=== PATIENT | female | born 1965 | race Caucasian/White ===

== ENCOUNTER 2019-07-03 09:12 | Outpatient (CLI) | payer OTHER, SELFPAY ==
--- NOTE | ~2019-07-03 | US_ITS ---
EXAMINATION: US pelvic complete w TV EXAM DATE: 07/03/2019 10:16 INDICATION: Postmenopausal bleeding. TECHNIQUE: Pelvic transabdominal and transvaginal sonogram was performed. There are multiple graysca le and Doppler images available for interpretation. There is no prior study for comparison. FINDINGS: Uterus measures 6.7 x 3.6 x 5.1 cm, and is morphologically normal. Endometrial stripe malorie sures 6 mm, upper limits of normal. There is no free pelvic fluid. Right adnexa: The ovary measures 1.5 x 0.7 x 1.1 cm and is morphologically normal. Ovarian vascular f low confirmed. Left adnexa: The ovary measures 1.1 x 0.6 x 0.9 cm and is morphologically normal. Ovarian vascular fl ow confirmed. IMPRESSION: Endometrium measuring 6 mm, upper limits of normal for postmenopausal status; consider fo llow-up or histologic correlation if symptoms persist. Reviewed, dictated and finalized at location A. IMPRESSION: Endometrium measuring 6 mm, upper limits of normal for postmenopaus al status; consider follow-up or histologic correlation if symptoms persist.
== END 2019-07-03 09:13 | disposition home or self-care (01) ==
LOC: ANHIMG 09:15
PROVIDERS: PCP Internal Medicine; Visit Provider Student in an Organized Health Care Education/Training Program
DX: N95.0 Postmenopausal bleeding (principal)
CPT/HCPCS: 76830; 76856

== ENCOUNTER 2019-12-27 14:39 | Outpatient (CLI) | payer OTHER, SELFPAY ==
--- NOTE | ~2019-12-27 | MM_ITS ---
EXAMINATION: MM screening ant BI w thomas HISTORY: Screening TECHNIQUE: Craniocaudal and mediolateral oblique 3-D tomosynthesis images were obtained and synthetic 2-D images were generated. CAD analysis was submitted and interpreted. COMPARISON: No prior mammogram is available for comparison at this institution. BREAST PARENCHYMAL COMPOSITION: The breasts are heterogenously dense, which may obscure small masses. FINDINGS: There are changes of breast reduction surgery. There is no evidence of suspicious mass, yonny cification, or architectural distortion to suggest malignancy in either breast. There has been no stephanie picious interval change. IMPRESSION: 1. No mammographic evidence of malignancy. 2. Recommend routine screening mammography in one year. BI-RADS Category 1: Negative Reviewed, dictated and finalized at location A.
== END 2019-12-27 14:40 | disposition home or self-care (01) ==
LOC: ANHIMG 14:41
PROVIDERS: PCP Internal Medicine; Visit Provider Student in an Organized Health Care Education/Training Program
DX: Z12.31 Encounter for screening mammogram for malignant neoplasm of breast (principal)
CPT/HCPCS: 77063; 77067

== ENCOUNTER 2020-01-06 08:31 | Emergency (ER) | payer OTHER, SELFPAY ==
--- NOTE | ~2020-01-06 | CT_ITS ---
EXAMINATION: CTA chest PE protocol DATE: 01/06/2020 10:55 INDICATION: Right chest, back pain TECHNIQUE: Computed tomography angiography (CTA) of the chest was performed with 100 mL Omnipaque-350 intravenous contrast timed to evaluate the pulmonary arteries. Coronal maximum intensity projection 3D-reconstructions were created by the technologist. Automated exposure control and iterative reconst ruction technique were employed. Exam dose: 358.12 mGy-cm total exam DLP. COMPARISON: None. FINDINGS: There is diagnostic contrast enhancement of the pulmonary arteries and no evidence of pulmo nary embolism. No thoracic aortic aneurysm or dissection. No hilar or mediastinal mass lesion or lymphadenopathy. Normal heart size. No pericardial or pleural effusion. Calcified right upper lobe pulmonary granuloma (series 4 image 36). There is minimal degenerative dep endent atelectasis in the right lower lobe. No pulmonary consolidation. The adrenal glands are normal. Status post cholecystectomy. Included upper abdominal structures are otherwise unremarkable. IMPRESSION: No evidence of pulmonary embolism. Reviewed, dictated and finalized at [facility]. Reviewed, dictated and finalized at location A.
--- NOTE | ~2020-01-06 | CT_ITS ---
EXAMINATION: CT abdomen pelvis wo con DATE: 01/06/2020 10:45 INDICATION: Right back pain TECHNIQUE: Computed tomography (CT) of the abdomen and pelvis was performed without intravenous contr ast. Automated exposure control and iterative reconstruction technique were employed. Exam dose: 623 .89 mGy-cm total exam DLP. COMPARISON: None. FINDINGS: There is mild discoid atelectasis and/or scarring at the lung bases. Normal heart size. No pericardial or pleural effusion. Status post cholecystectomy. No hepatic, splenic, pancreatic, and adrenal or renal space-occupying ma ss lesion is detected. There is left renal scarring, primarily at the upper pole. There are several p inpoint nonobstructing left renal calculi. No ureteral calculus or hydroureteronephrosis. The urinary bladder is unremarkable. The uterus and adnexal areas are unremarkable. Normal caliber of the abdominal aorta. No intraperitoneal or retroperitoneal or pelvic mass lesion or adenopathy or ascites. Diverticulosis of the colon; no CT evidence of diverticulitis. No bowel obstruction, bowel wall thick ening, pneumatosis or intraperitoneal free air. There is moderately prominent degenerative disc disease at L5-S1. Included skeletal structures are ot herwise unremarkable. IMPRESSION: Status post cholecystectomy Left renal scarring and several nonobstructing small left renal calculi Diverticulosis of the colon; no CT evidence of diverticulitis Reviewed, dictated and finalized at [facility]. Reviewed, dictated and finalized at location A.
[2020-01-06 08:39] VITALS: BP 131/98; PULSE 75; RESP 18; TEMP 36.7; O2SAT 97
[2020-01-06 08:56] LABS: Basophils Absolute Auto 0.1 K/mm3 (0.0-0.1); Basophils Percent Auto 0.4 % (0.2-1.2); Eosinophils Absolute Auto 0.1 K/mm3 (0-0.3); Eosinophils Percent Auto 0.6 % (0-4.4); Hematocrit 43.5 % (37.0-47.0); Hemoglobin 14.6 g/dL (12.0-15.0); Immature Granulocyte Absolute 0.06 K/mm3 (0.00-0.031); Immature Granulocyte Percent A 0.5 % (0-0.5); Lymphocytes Absolute Auto 3.68 K/mm3 (0.9-3.2); Lymphocytes Percent Auto 29.6 % (18.3-44.2); Mean Corpuscular HGB Conc 33.6 g/dl (32-36); Mean Corpuscular Hemoglobin 31.6 pg (26-34); Mean Corpuscular Volume 94.2 fl (80-100); Mean Platelet Volume 10.4 fl (7.4-10.4); Monocytes Absolute Auto 0.9 K/mm3 (0.1-0.6); Monocytes Percent Auto 7.1 % (2.6-8.5); Neutrophils Absolute Auto 7.7 K/mm3 (1.3-6.7); Neutrophils Percent Auto 61.8 % (45.5-73.1); Platelet Count Result 293 k/mm3 (150-375); Red Blood Count 4.62 M/mm3 (4.2-5.4); Red Cell Distribution Width 12.1 % (11.5-14.5); White Blood Count 12.4 K/mm3 (4.5-10.0)
[2020-01-06 09:03] LABS: Add Urine Microscopic? YES; Appearance Urine Clear (Clear); Bacteria Urine Trace /hpf; Bilirubin Urine Negative (Negative); Blood Urine Negative (Negative); Color Urine Yellow (Yellow); Glucose Urine UA Negative (Negative); Ketones Urine Negative (Negative); Leukocyte Esterase Ur Negative LEU/UL (Negative); Mucus Urine Rare /lpf; Nitrate Urine Negative (Negative); Protein Urine Negative (Negative); Squamous Epithelial Cell Urine Moderate /hpf (Few); Urobilinogen Urine Negative mg/dL (<2.0); WBC Urine 0-3 /hpf
[2020-01-06 09:04] LABS: Anion Gap 6 mmol/L (8-16); Blood Urea Nitrogen 16 mg/dL (7-17); Calcium 9.1 mg/dL (8.4-10.2); Carbon Dioxide 29 mmol/L (22-30); Chloride 100 mmol/L (98-107); Estimated CRCL calculation 71 ml/min; Estimated Glomerular Filt Rate > 60; Glucose 99 mg/dL (65-105); Potassium 3.7 mmol/L (3.4-5.0); Sodium 135 mmol/L (137-145)
--- NOTE | 2020-01-06 09:54 | ED.GENADULT ---
HPI - General Adult General Chief complaint: Back Pain/Injury Stated complaint: back pain hurt to breath and move Time Seen by Provider: 01/06/20 09:35 Source: patient History of Present Illness HPI narrative: Patient is a 54 y/o female complaining of right back pain starting 2 days ago. She describes her pain as sharp. The intensity varies no pain to severe pain. Pain sometimes radiates to right rib area. Deep breath and movement aggravates her pain. She took some pain pill and muscle relaxers which did not help. She tried heating pad, which also did not help. She has no fever, chill, dysuria or hematuria. She has some nausea, but no vomiting or diarrhea. Related Data Home Medications Medication Instructions Recorded Confirmed cholecalciferol (vitamin D3) 125 5,000 unit PO DAILY 03/23/19 mcg (5,000 unit) tablet omega-3 fatty acids 300 mg capsule 1,500 mg PO DAILY 03/23/19 thyroid (pork) 90 mg tablet 90 mg PO DAILY 03/24/19 spironolactone 25 mg tablet 25 mg PO DAILY 06/22/19 testosterone 75 mg implant pellet 150 mg SUB-Q ONCE 06/22/19 Allergies Allergy/AdvReac Type Severity Reaction Status Date / Time Penicillins Allergy Severe SWELLING Verified 01/06/20 08:43 ciprofloxacin Allergy Unknown RED STREAK Verified 01/06/20 08:43 TO ARM, SWELLING Review of Systems Constitutional: Constitutional: Denies chills, Denies fever(s), Denies headache(s) and Denies weakness Eyes: Eyes: Denies blurry vision ENT: Denies headache(s) and Denies neck pain Cardiovascular: Cardiovascular: Denies chest pain and Denies dyspnea Respiratory: Respiratory: Denies cough and Denies dyspnea Gastrointestinal: Gastrointestinal: Denies abdominal pain, Denies diarrhea, Denies nausea and Denies vomiting Genitourinary: Genitourinary: Denies hematuria and Denies dysuria Musculoskeletal: Musculoskeletal: Reports back pain and Denies neck pain Neurologic: Denies headache(s) and Denies weakness PMFSH Past Medical History Medical History Diverticulosis Irritable bowel Migraines Non Hodgkin's lymphoma Vaginal delivery x4 Surgical History Surgical History History of bilateral breast reduction surgery History of cholecystectomy [place] teeth removed Family History Family History Sibling Family history of malignant neoplasm of breast in first degree relative Family history of obesity Family history of osteoporosis Family history of migraine headaches Hypertension Mother Family history of mental disorder Patient's mother is Social History Social History Smoking status: Never smoker Alcohol intake: never Gender identity (if verbalized by the patient): Female Exam Const: General: no acute distress and well developed Orientation/consciousness: oriented to person, oriented to place, oriented to time and patient oriented x3 HENMT: Head: normocephalic Ears: external ears normal General nose exam: Normal external nose present Eyes: General: appearance normal, both eyes and all related structures Conjunctivae: conjunctivae normal Neck: Neck: normal visual inspection and full ROM Chest: Chest palpation & inspection: normal inspection of the chest and no tenderness Resp: Effort & Inspection: normal respiratory effort Auscultation: clear to auscultation bilaterally Cardio: Rate: regular rate Rhythm: regular rhythm GI: GI Palp: No abdominal tenderness and Yes Soft to palpation Skin: General skin exam: normal color and turgor normal Neuro: General: oriented to person, oriented to place, oriented to time and patient oriented x3 Cognition (Neuro): normal cognition Extrem: General: normal to inspection, full ROM and no pedal edema Psych: Appearance: grossly normal Mental Status: mental
[2020-01-06 10:13] LABS: D Dimer 0.57 ug/mL (<0.48)
[2020-01-06] MEDS: KETOROLAC 30 MG/ML VIAL (*BKC) IV PUSH (12:00)
[2020-01-06] MEDS: TIZANIDINE HCL 2 MG TABLET PO (12:17)
[2020-01-06 12:38] VITALS: BP 128/80; PULSE 80; RESP 18; TEMP 36.6; O2SAT 99
== END 2020-01-06 12:39 | disposition home or self-care (01) ==
PROVIDERS: Emergency Provider Emergency Medicine; PCP Internal Medicine
DX: M54.5 Low back pain (principal); K58.9 Irritable bowel syndrome, unspecified; Z85.72 Personal history of non-Hodgkin lymphomas
CPT/HCPCS: 36415; 71275; 74176; 80048; 81001; 81025; 85025; 85380; 96374; 99284; A9270; J1885; Q9967

== ENCOUNTER 2020-05-29 15:41 | Outpatient (CLI) | payer OTHER, SELFPAY ==
--- NOTE | ~2020-05-29 | XR_ITS ---
EXAMINATION: XR hip LT 2V w AP pelvis, XR sacroiliac joints min 3V DATE: 05/29/2020 16:14 INDICATION: Left hip and bilateral sacral iliac joint pain. TECHNIQUE: 1. Anteroposterior view of the pelvis and anteroposterior and frog-leg lateral views of the left hip were obtained. 2. AP and left and right oblique views of the sacroiliac joints were obtained. COMPARISON: CT abdomen and pelvis dated 01/06/2020 FINDINGS: Bone alignment is normal. No fracture or suspected avascular necrosis. Partially visualized plate and screw fixation along the right femoral diaphysis. Mild osteoarthritis at the bilateral sacral iliac joints and minimal osteoarthritis at the bilateral hips. Severe disc height loss at L5-S1. Lower lumb ar facet osteoarthritis, severe on the left at L4-L5 and otherwise moderate severity. Multiple phlebo liths in the pelvis. Surgical clip projects of the central pelvis. IMPRESSION: 1. Polyarticular osteoarthritis, moderate to severe at the lower lumbar facet joints, mild at the primo ateral sacroiliac joints and minimal at the bilateral hip joints. Reviewed, dictated and finalized at location A. [place] [employer]IST IMPRESSION: 1. Polyarticular osteoarthritis, moderate to severe at the lower lumbar facet j oints, mild at the bilateral sacroiliac joints and minimal at the bilateral hip joints.
== END 2020-05-29 15:42 | disposition home or self-care (01) ==
LOC: ANHIMG 15:46
PROVIDERS: PCP Internal Medicine; Visit Provider Physician Assistant
DX: M16.12 Unilateral primary osteoarthritis, left hip (principal); M47.898 Other spondylosis, sacral and sacrococcygeal region
CPT/HCPCS: 72202; 73502

== ENCOUNTER 2020-06-24 16:28 | Emergency (ER) | payer OTHER, SELFPAY ==
[2020-06-24 16:36] VITALS: BP 144/107; PULSE 110; RESP 18; TEMP 36.8; O2SAT 100
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
== END 2020-06-24 19:15 | disposition home or self-care (01) ==
PROVIDERS: Emergency Provider Nurse Practitioner; PCP Internal Medicine
DX: S39.92XA Unspecified injury of lower back, initial encounter (principal); S16.1XXA Strain of muscle, fascia and tendon at neck level, initial encounter; V49.40XA Driver injured in collision with unspecified motor vehicles in traffic accident, initial encounter; K57.90 Diverticulosis of intestine, part unspecified, without perforation or abscess without bleeding; K58.9 Irritable bowel syndrome, unspecified; Z85.72 Personal history of non-Hodgkin lymphomas
CPT/HCPCS: 99283

== ENCOUNTER → 2020-08-09 00:40 | Outpatient (CLI) | payer OTHER, SELFPAY ==
[2020-08-09 21:02] LABS: SARS-CoV-2 RNA PCR Negative
== END ==
PROVIDERS: PCP Internal Medicine; Visit Provider Internal Medicine Gastroenterology
DX: Z01.812 Encounter for preprocedural laboratory examination (principal); Z20.822 Contact with and (suspected) exposure to COVID-19
CPT/HCPCS: C9803; U0003; U0005

== ENCOUNTER 2020-08-12 01:25 | Day surgery (SDC) | payer OTHER, SELFPAY ==
[2020-08-01 09:36] VITALS: BMI 26.8
[2020-08-12 10:37] VITALS: BP 120/85; PULSE 77; RESP 16; TEMP 36.8; O2SAT 97; BMI 29.4
[2020-08-12] MEDS: LACTATED RINGERS 1,000 ML 150 ML IV CONT (10:51)
--- NOTE | 2020-08-12 10:55 | SUR.PREOP ---
Pt states post-menopausal due to taking hormones. No urine need per Dr. Fountain (anesthesiologist).
--- NOTE | 2020-08-12 11:15 | PM.HPGS ---
History of Present Illness History of Present Illness Consent: Risks, benefits, and alternatives have been discussed and questions answered. Patient agrees to proceed with procedure. Chief complaint: neoplasm screening Narrative: Jennifer Coyne is a 54 year old female with colon polyp ~ 5 years ago. Review of Systems Constitutional: Constitutional: Denies headache(s) and Denies weakness Eyes: Eyes: Denies blurry vision ENT: Reports Normal hearing present, Denies headache(s) and Denies neck pain Cardiovascular: Cardiovascular: Denies chest pain and Denies dyspnea Respiratory: Respiratory: Denies dyspnea Gastrointestinal: Gastrointestinal: Reports no additional gastrointestinal complaints Genitourinary: Genitourinary: Denies dysuria Musculoskeletal: Musculoskeletal: Denies neck pain Integumentary/Breasts: Skin/Breast: Denies dry skin Neurologic: Reports Normal hearing present, Denies headache(s) and Denies weakness Psychiatric: Psychiatric: Denies anxiety Endocrine: Endocrine: Denies change in body appearance Hematologic/Lymphatic: Hematologic/Lymphatic: Denies easy bleeding Allergic/Immunologic: Allergic/Immunologic: Denies urticaria PMFSH Past Medical History Medical History Diverticulosis Irritable bowel Migraines Non Hodgkin's lymphoma Vaginal delivery x4 Surgical History Surgical History History of bilateral breast reduction surgery History of cholecystectomy [place] teeth removed Family History Family History Sibling Family history of malignant neoplasm of breast in first degree relative Family history of obesity Family history of osteoporosis Family history of migraine headaches Hypertension Mother Family history of mental disorder Patient's mother is Social History Social History (Updated 06/24/20 @ 19:06 by LAZARO Borrero) Smoking status: Never smoker Alcohol intake: unknown Substance use: never Substance use type: does not use Gender identity (if verbalized by the patient): Female Spiritual care concerns: No Meds Home Medications and Allergies Home Medications Medication Instructions Recorded Confirmed Type cholecalciferol (vitamin D3) 125 5,000 unit PO DAILY 03/23/19 08/12/20 History mcg (5,000 unit) tablet omega-3 fatty acids 300 mg capsule 1,500 mg PO DAILY 03/23/19 08/12/20 History thyroid (pork) 90 mg tablet 90 mg PO DAILY 03/24/19 08/12/20 History spironolactone 25 mg tablet 25 mg PO BID 06/22/19 08/12/20 History testosterone 75 mg implant pellet 150 mg SUB-Q ONCE 06/22/19 08/12/20 History alprazolam 1 mg tablet 1 mg PO BID #1 tablet 05/21/20 08/12/20 Rx oxycodone-acetaminophen 5 mg-325 1 tablet PO Q6H PRN #1 tablet 05/21/20 08/12/20 Rx mg tablet progesterone micronized 200 mg 200 mg PO ONCE 05/21/20 08/12/20 History capsule rabeprazole 20 mg tablet,delayed 20 mg PO DAILY #90 tablet 05/21/20 08/12/20 Rx release cetirizine 10 mg tablet See Rx Instructions .ROUTE 06/03/20 08/12/20 Rx .COMPLEX #90 tablet montelukast 10 mg tablet 10 mg PO DAILY #90 tablet 06/05/20 08/12/20 Rx ibuprofen 800 mg PO TID PRN #20 tablet 06/24/20 08/12/20 Rx fluticasone propionate 50 See Rx Instructions .ROUTE 07/29/20 08/12/20 Rx mcg/actuation nasal .COMPLEX #16 g spray,suspension Allergies Allergy/AdvReac Type Severity Reaction Status Date / Time Penicillins Allergy Severe SWELLING Verified 08/12/20 10:32 ciprofloxacin Allergy Unknown RED STREAK Verified 08/12/20 10:32 TO ARM, SWELLING Vital Signs Vital Signs - 24 hr 08/12/20 10:37 Temperature 98.3 F Pulse Rate 77 Respiratory Rate 16 Blood Pressure 120/85 Pulse Oximetry 97 Exam Const: General: comfortable and no acute distress HENMT: General nose exam: Normal nares present Eye
--- NOTE | 2020-08-12 11:27 | WPDANESEPPF ---
Anes - Initial Pre Proc Eval Procedure: Operation Date: 08/12/20 11:30 Proposed Procedures p Screening Colonoscopy - Cam Watson MD Date/Time: 08/12/20 11:27 Surgeon: Cam Watson MD Pre Op Diagnosis: neoplasm screening Patient Data Age: 54 Gender: F Height: 5 ft 8 in Weight: 87.7 kg Last Vital Signs Temp 98.3 F 08/12/20 10:37 Pulse 77 08/12/20 10:37 Resp 16 08/12/20 10:37 BP 120/85 08/12/20 10:37 Pulse Ox 97 08/12/20 10:37 Allergies Allergy/AdvReac Type Severity Reaction Status Date / Time Penicillins Allergy Severe SWELLING Verified 08/12/20 10:32 ciprofloxacin Allergy Unknown RED STREAK Verified 08/12/20 10:32 TO ARM, SWELLING Home Medications Medication Instructions Recorded Confirmed Type cholecalciferol (vitamin D3) 125 5,000 unit PO DAILY 03/23/19 08/12/20 History mcg (5,000 unit) tablet omega-3 fatty acids 300 mg capsule 1,500 mg PO DAILY 03/23/19 08/12/20 History thyroid (pork) 90 mg tablet 90 mg PO DAILY 03/24/19 08/12/20 History spironolactone 25 mg tablet 25 mg PO BID 06/22/19 08/12/20 History testosterone 75 mg implant pellet 150 mg SUB-Q ONCE 06/22/19 08/12/20 History alprazolam 1 mg tablet 1 mg PO BID #1 tablet 05/21/20 08/12/20 Rx oxycodone-acetaminophen 5 mg-325 1 tablet PO Q6H PRN #1 tablet 05/21/20 08/12/20 Rx mg tablet progesterone micronized 200 mg 200 mg PO ONCE 05/21/20 08/12/20 History capsule rabeprazole 20 mg tablet,delayed 20 mg PO DAILY #90 tablet 05/21/20 08/12/20 Rx release cetirizine 10 mg tablet See Rx Instructions .ROUTE 06/03/20 08/12/20 Rx .COMPLEX #90 tablet montelukast 10 mg tablet 10 mg PO DAILY #90 tablet 06/05/20 08/12/20 Rx ibuprofen 800 mg PO TID PRN #20 tablet 06/24/20 08/12/20 Rx fluticasone propionate 50 See Rx Instructions .ROUTE 07/29/20 08/12/20 Rx mcg/actuation nasal .COMPLEX #16 g spray,suspension Patient hx anesthesia problems: none Family hx anesthesia problems: none PMFSH Past Medical History Medical History Diverticulosis Irritable bowel Migraines Non Hodgkin's lymphoma Vaginal delivery x4 Surgical History Surgical History History of bilateral breast reduction surgery History of cholecystectomy [place] teeth removed Family History Family History Sibling Family history of malignant neoplasm of breast in first degree relative Family history of obesity Family history of osteoporosis Family history of migraine headaches Hypertension Mother Family history of mental disorder Patient's mother is Social History Social History (Updated 06/24/20 @ 19:06 by LAZARO Borrero) Smoking status: Never smoker Alcohol intake: unknown Substance use: never Substance use type: does not use Gender identity (if verbalized by the patient): Female Spiritual care concerns: No Anes - Eval Final PreProcedure Day of Procedure 08/12/20 11:27 Patient weight: overweight Heart: regular rate and rhythm Lungs: clear to auscultation Airway: Mallampati scale class III Neurological: alert and oriented Last oral intake: >/= 8 hours ASA classification: III Emergent: no Anesthetic plan: proceed Anesthesia type and monitoring: general GIVS and standard monitoring Informed Consent: The patient's anesthetic plan and its attendant risks and benefits were discussed with the patient/family/POA. Questions were solicited and answers provided to the satisfaction of the patient/family/POA.
[2020-08-12 11:43] VITALS: BP 107/72; PULSE 64; RESP 16; O2SAT 97
[2020-08-12 11:53] VITALS: BP 110/74; PULSE 62; RESP 16; O2SAT 98
[2020-08-12 12:03] VITALS: BP 112/72; PULSE 64; RESP 16; O2SAT 98
== END 2020-08-12 12:21 | disposition home or self-care (01) ==
PROVIDERS: PCP Internal Medicine; Visit Provider Internal Medicine Gastroenterology
PROC: 0DJD8ZZ Inspection of Lower Intestinal Tract, Via Natural or Artificial Opening Endoscopic (ICD-10-PCS; CPT 45378; principal; 2020-08-12 11:30)
DX: Z12.11 Encounter for screening for malignant neoplasm of colon (principal); D12.0 Benign neoplasm of cecum; D12.3 Benign neoplasm of transverse colon; K57.30 Diverticulosis of large intestine without perforation or abscess without bleeding; K64.8 Other hemorrhoids; Z79.891 Long term (current) use of opiate analgesic; Z85.72 Personal history of non-Hodgkin lymphomas
CPT/HCPCS: 45385; 88305; J2704; J7120

== ENCOUNTER → 2020-11-29 03:43 | Outpatient (CLI) | payer OTHER, SELFPAY ==
[2020-11-30 03:36] LABS: SARS-CoV-2 RNA PCR Negative
== END ==
PROVIDERS: PCP Internal Medicine; Visit Provider Internal Medicine
DX: Z20.822 Contact with and (suspected) exposure to COVID-19 (principal)
CPT/HCPCS: C9803; U0003; U0005

== ENCOUNTER 2021-01-10 14:16 | Outpatient (CLI) | payer OTHER, SELFPAY ==
--- NOTE | ~2021-01-10 | MM_ITS ---
EXAMINATION: MM screening ant BI w thomas HISTORY: Screening mammogram TECHNIQUE: Craniocaudal and mediolateral oblique 3-D tomosynthesis images were obtained and synthetic 2-D images were generated. CAD analysis was submitted and interpreted. COMPARISON: 12/27/2019 bilateral digital screening mammogram examination BREAST PARENCHYMAL COMPOSITION: There are scattered areas of fibroglandular density. FINDINGS: Status post bilateral reduction mammoplasty (2011). There is no evidence of suspicious mass , calcification, or architectural distortion to suggest malignancy in either breast. There has been n o suspicious interval change. IMPRESSION: 1. No mammographic evidence of malignancy. 2. Recommend routine screening mammography in one year. BI-RADS Category 2: Benign finding(s). Reviewed, dictated and finalized at location A.
--- NOTE | ~2021-01-10 | US_ITS ---
EXAMINATION: US pelvic complete w TV DATE: 01/10/2021 15:30 INDICATION: Postmenopausal bleeding Comparison:Ultrasound dated 07/03/2019 TECHNIQUE: Multiple transabdominal and endovaginal sonographic images of the pelvis performed. FINDINGS: The uterus measures 9 x 4.7 x 5.2 cm. The endometrial complex measures 6 mm. The right ovary measures 1.9 x 1.2 x 1.3 cm and the left ovary measures 2 x 1.8 x 1.6 cm. There are small follicles in each ovary. Normal doppler signal in both ovaries. There is no free fluid in the pelvis. There are no abnormal masses seen on either side. IMPRESSION: 1. Thickened endomtrial complex. The differential diagnosis includes endometrial hyperplasia, polyp a nd carcinoma. Biopsy is recommended. Reviewed, dictated and finalized at location A. IMPRESSION: 1. Thickened endomtrial complex. The differential diagnosis includes endometria l hyperplasia, polyp and carcinoma. Biopsy is recommended.
== END 2021-01-10 14:17 | disposition home or self-care (01) ==
LOC: ANHIMG 14:17
PROVIDERS: PCP Internal Medicine; Visit Provider Student in an Organized Health Care Education/Training Program
DX: Z12.31 Encounter for screening mammogram for malignant neoplasm of breast (principal); R10.2 Pelvic and perineal pain; R93.89 Abnormal findings on diagnostic imaging of other specified body structures
CPT/HCPCS: 76830; 76856; 77063; 77067

== ENCOUNTER → 2021-03-07 10:54 | Outpatient (CLI) | payer OTHER, SELFPAY ==
--- NOTE | ~2021-03-07 | US_ITS ---
EXAMINATION: US axilla RT INDICATION: Localized swelling and pain of the right axilla TECHNIQUE: Targeted high-resolution ultrasound of the right axilla was performed. COMPARISON: None available FINDINGS: There are two benign-appearing lymph nodes in the area of clinical concern of the right axi lla. No suspicious mass or lymphadenopathy is identified. IMPRESSION: 1. No suspicious sonographic correlate is identified for the patient's right axilla pain. Further matthew luation at this time should be based on clinical assessment. Continued follow-up physical examination is recommended. Reviewed, dictated and finalized at location A. [employer] COORDINATOR IMPRESSION: 1. No suspicious sonographic correlate is identified for the patient's right ax illa pain. Further evaluation at this time should be based on clinical assessme nt. Continued follow-up physical examination is recommended.
== END ==
PROVIDERS: Visit Provider Student in an Organized Health Care Education/Training Program
DX: R22.2 Localized swelling, mass and lump, trunk (principal)
CPT/HCPCS: 76882

== ENCOUNTER 2021-03-21 00:13 | Day surgery (SDC) | payer OTHER, SELFPAY ==
[2021-03-10 08:46] VITALS: BMI 30.2
--- NOTE | 2021-03-10 08:56 | PC.NURSE ---
Report to the Outpatient Waiting Room, entrance under the green pavilion located off [facility], at time __0830 on date __03/21/21____. OR Time: 1030 . - You and your visitor will be asked a series of questions to screen for COVID 19 for your protection. - A mask is required within the hospital. - Only one visitor is allowed at this time. Patient visitors will be guided where to wait when not with patient. Preoperative COVID Testing Requirements: No COVID Test needed if: (proof is required; if not received patient will have Rapid Test prior to entry) - Patient has received COVID Vaccine at least 14 days prior to procedure date or - Patient has positive COVID test result within last 90 days of surgery date. COVID Test needed if above criteria is not met If not COVID vaccinated a COVID test must be conducted within 72 hours of surgery and patient is asked to isolate self from time of testing until procedure. You will go to the [facility] for your COVID testing. The [facility] site is located at the corner of [address] [facility]. You will only be called if COVID results are positive and your surgeon may reschedule your elective surgery date. Patients may have clear liquids (water, carbonated beverages, clear teas, apple juice) until 3 hours prior to surgery with a maximum of 20 ounces. - No food from midnight until time of surgery - Infants may have breast milk until 4 hours before surgery, formula 6 hours prior to surgery. - Children will be allowed to drink immediately following surgery. If applicable, please bring a bottle or sippy cup to assist with drinking. Juice, water, soda, and popsicles are readily available. For infants on formula, please bring formula the day of surgery. Pacifiers are allowed. Take the following medications with a SIP of water the morning of surgery: THYROID,ALPRAZOLAM,PAIN PILL IF NEEDED Medications to discontinue per physician VITAMINS AND SUPPLIMENTS Date to take last dose 03/18/21 Please no make-up, nail welsh, hairspray, perfume, deodorant, or body powder the day of surgery. No jewelry (including any body piercings) or valuables the day of surgery, leave them at home. Please take a shower or bath the night before, or the morning of, surgery with an antibacterial soap. Wear comfortable, loose fitting clothing. Children are encouraged to wear pajamas. - Jewelry must be removed prior to entering the operating room. Rings and piercings that are not removed may be cut off. - The hospital will not accept responsibility for valuables. - Please leave all valuables, including medications, at home the day of surgery. If you are going home after surgery, a licensed corporate driver must drive you home. - NO public transportation without another adult. - We recommend that an adult stay with you for 24 hours following discharge. - We also recommend that you do not drive, make important decision, drink alcoholic beverages, or take any drugs that were not prescribed by your health care provider for at least 24 hours after your discharge time. For Pediatric surgeries, we recommend two adults accompany the child home (only one inside the building at this time). Follow any additional instructions given to you from your surgeon. Telephone instructions given to ___PATIENT and asked if any additional questions and then verbalized understanding. Patient advised to call surgeon office or pre surgery nurse liaison [phone] if any additional questions.
--- NOTE | 2021-03-20 22:45 | PM.IMHP ---
H&P: HPI History of Present Illness Date/Time: 03/20/21 22:45 Patient is a 55 yo menopausal woman who presented to gynecology office with complaints of postmenopausal bleeding. Patient receives hormone pellet injections approximately every 3-4 months by outside provider. She has previously been evaluated similar complaints, which was thought to be due to hormone pellets. She reports almost cyclic bleeding, similar to a menses. States that bleeding is sometimes spotting and other times is extremely heavy. Patient also reports cramping for a long time. States that cramping and pelvic pain is mostly on left side. An EMB was performed showing fragments of an endometrial polyp. Recommendation made to proceed with a hysteroscopy/D&C for further evaluation. In general, patient reports feeling well today. Chief Complaint: postmenopausal bleeding Review of Systems Review of Systems: All systems reviewed & are unremarkable except as noted in HPI and below Constitutional: Constitutional: Reports as per HPI, Reports no additional constitutional complaints, Denies chills, Denies fever(s), Denies headache(s) and Denies night sweats Eyes: Eyes: Reports as per HPI and Reports no additional eye complaints ENT: Reports system reviewed and no additional complaints, except as documented, Reports as per HPI, Reports Normal hearing present and Denies headache(s) Cardiovascular: Cardiovascular: Reports as per HPI, Reports no additional cardiovascular complaints, Denies chest pain and Denies dyspnea Respiratory: Respiratory: Reports as per HPI, Reports no additional respiratory complaints, Denies cough and Denies dyspnea Gastrointestinal: Gastrointestinal: Reports as per HPI, Reports no additional gastrointestinal complaints, Denies abdominal pain, Denies change in bowel habits, Denies change in stool character, Denies nausea and Denies vomiting Genitourinary: Genitourinary: Reports no additional female genitourinary complaints, Reports as per HPI, Denies abnormal vaginal bleeding, Denies genital lesions, Denies hot flashes, Denies dyspareunia, Denies pelvic pain, Denies sexual dysfunction, Denies urinary incontinence, Denies vaginal discharge, Denies vaginal dryness and Denies vaginal odor Musculoskeletal: Musculoskeletal: Reports no additional musculoskeletal complaints and Reports as per HPI Integumentary/Breasts: Skin/Breast: Reports system reviewed and no additional complaints, except as docu, Reports as per HPI, Denies breast pain and Denies nipple discharge Neurologic: Reports system reviewed and no additional complaints, except as documented, Reports as per HPI, Reports Normal hearing present and Denies headache(s) Psychiatric: Psychiatric: Reports no additional psychiatric complaints, Reports as per HPI, Denies anxiety and Denies depression Endocrine: Endocrine: Reports no additional endocrine complaints and Reports as per HPI Hematologic/Lymphatic: Hematologic/Lymphatic: Reports no additional hematologic/lymphatic complaints and Reports as per HPI Allergic/Immunologic: Allergic/Immunologic: Reports no additional allergic/immunologic complaints and Reports as per HPI PMFSH Past Medical History Medical History Colon polyp Diverticulosis Irritable bowel Migraines Non Hodgkin's lymphoma Vaginal delivery x4 Surgical History Surgical History History of bilateral breast reduction surgery History of cholecystectomy [place] teeth removed Family History Family History Sibling Family history of malignant neoplasm of breast in first degree relative Family history of obesity Family history of osteoporosis Family history of migraine headaches Hypertension Mother Family history of mental disorder Patient's mother is Social History Social History (Reviewed 03/20/21 @ 22:53 by Tete
[2021-03-21 09:15] VITALS: BP 114/79; PULSE 80; RESP 18; TEMP 36.6; O2SAT 97
--- NOTE | 2021-03-21 09:32 | WPDANESEPPF ---
Anes - Initial Pre Proc Eval Procedure: Operation Date: 03/21/21 10:30 Proposed Procedures p Hysteroscopy Dilation and Curettage Possible Myosure - Gala Bernal MD Date/Time: 03/21/21 09:32 Surgeon: Gala Bernal MD Pre Op Diagnosis: endometrial polyp, polyploidy proliferative endome Patient Data Age: 55 Gender: F Height: 1.73 m Weight: 90 kg Allergies Allergy/AdvReac Type Severity Reaction Status Date / Time Penicillins Allergy Severe SWELLING Verified 02/28/21 13:10 ciprofloxacin Allergy Unknown RED STREAK Verified 02/28/21 13:10 TO ARM, SWELLING Home Medications Medication Instructions Recorded Confirmed Type cholecalciferol (vitamin D3) 125 5,000 unit PO DAILY 03/23/19 03/10/21 History mcg (5,000 unit) tablet omega-3 fatty acids 300 mg capsule 1,500 mg PO DAILY 03/23/19 03/10/21 History spironolactone 25 mg tablet 25 mg PO BID 06/22/19 03/10/21 History testosterone 75 mg implant pellet 150 mg SUB-Q [id number] 06/22/19 03/10/21 History oxycodone-acetaminophen 5 mg-325 1 tablet PO Q6H PRN #1 tablet 05/21/20 03/10/21 Rx mg tablet progesterone micronized 200 mg 200 mg PO DAILY 05/21/20 03/10/21 History capsule rabeprazole 20 mg tablet,delayed 20 mg PO DAILY #90 tablet 12/26/20 03/10/21 Rx release ferrous sulfate 325 mg (65 mg 325 mg PO DAILY 12/27/20 03/10/21 History iron) tablet multivitamin 1 tablet PO DAILY 12/27/20 03/10/21 History thyroid (pork) 120 mg tablet 120 mg PO DAILY 12/27/20 03/10/21 History montelukast 10 mg tablet 10 mg PO DAILY #90 tablet 01/02/21 03/10/21 Rx famotidine 20 mg tablet 20 mg PO QHS #30 tablet 02/28/21 03/10/21 Rx alprazolam [Xanax] 1 mg PO BID PRN 03/10/21 03/10/21 History cetirizine 10 mg PO DAILY 03/10/21 03/10/21 History fluticasone propionate 1 spray INTRANASAL DAILY 03/10/21 03/10/21 History Patient hx anesthesia problems: post op nausea/vomiting Family hx anesthesia problems: none Results Review: All pre-operative results and documents have been reviewed as part of the pre-operative evaluation. [facility] Past Medical History Medical History Anxiety Colon polyp Diverticulosis GERD (gastroesophageal reflux disease) Hypothyroidism Irritable bowel Migraines Non Hodgkin's lymphoma Vaginal delivery x4 Surgical History Surgical History History of bilateral breast reduction surgery History of cholecystectomy [place] teeth removed Family History Family History Sibling Family history of malignant neoplasm of breast in first degree relative Family history of obesity Family history of osteoporosis Family history of migraine headaches Hypertension Mother Family history of mental disorder Patient's mother is Social History Social History Smoking status: Never smoker Second hand tobacco smoke exposure: No Alcohol intake: never Substance use: never Substance use type: does not use Living arrangements: alone Gender identity (if verbalized by the patient): Female Spiritual care concerns: No Anes - Eval Final PreProcedure Day of Procedure 03/21/21 09:32 Patient weight: overweight Heart: regular rate and rhythm Lungs: clear to auscultation Airway: Mallampati scale class II Neurological: alert and oriented Last oral intake: >/= 8 hours ASA classification: III Emergent: no Anesthetic plan: proceed Anesthesia type and monitoring: general GIVS and standard monitoring Results Review: All pre-operative results and documents have been reviewed as part of the pre-operative evaluation. Informed Consent: The patient's anesthetic plan and its attendant risks and benefits were discussed with the patient/family/POA. Questions were solicited and answers provided to the satisfaction of the pa
[2021-03-21] MEDS: ACETAMINOPHEN 500 MG TABLET 1000 MG PO (09:34)
[2021-03-21] MEDS: LACTATED RINGERS 1,000 ML 30 ML IV CONT (09:42)
--- NOTE | 2021-03-21 10:13 | WPDHPUPDATE1 ---
History and Physical Update Update Date/Time: 03/21/21 10:13 History and Physical has been reviewed, including an updated exam of the patient. There are NO changes in the patient's condition. Risks, benefits, and alternatives have been discussed and questions answered. Patient agrees to proceed with procedure.
[2021-03-21 10:16] LABS: Hematocrit 41.9 % (37.0-47.0); Hemoglobin 14.3 g/dL (12.0-15.0)
[2021-03-21 10:57] VITALS: BP 111/88; PULSE 84; RESP 12; O2SAT 93
[2021-03-21] MEDS: ONDANSETRON INJ 4 MG/2 ML VIAL IV PUSH (11:07)
--- NOTE | 2021-03-21 11:09 | W.PM.PROC2 ---
Procedure Note - Detailed Date of Procedure 03/22/21 Pre-op Diagnosis Postmenopausal bleeding, endometrial polyp Post-op Diagnosis same Procedure Performed Hysteroscopy, dilation and curettage Surgeon Gala Bernal MD Anesthesia MAC Findings moderate amount of polypoid tissue visualized with few finger-like projections suggestive of polyps, bilateral tubal ostia visualized Description of Procedure The patient was taken to the operating room where she self-transferred to the operating room table. She was placed in dorsal supine position. Anesthesia was administered and found to be adequate. The patient was repositioned in dorsal lithotomy position with the use of Fabian stirrups. She was prepped and draped in usual sterile fashion. A red rubber catheter was used to drain the bladder of 50 cc of urine. A bivalve speculum was inserted into the vagina. The cervix was well visualized. The anterior lip of the cervix was grasped with a single-tooth tenaculum. A paracervical block was performed with 1% plain lidocaine. 5 cc of lidocaine was administered on either side for a total of 10 cc. The cervix was serially dilated to accommodate a hysteroscope. The hysteroscope was introduced into the endometrial cavity. A general survey was performed. A moderate amount of polypoid tissue was noted. A few finger-like projections, likely polyps, were visualized extending from the left and right surfaces of the endometrium. Bilateral tubal ostia were visualized. A few pictures were taken. The hysteroscope was removed. A medium-size rigid curette was used to perform a curettage. All quadrants of the endometrial cavity were explored. A moderate amount of tissue was obtained and prepared to be sent to pathology for analysis. The hysteroscope was reintroduced and one small previously identified polyp was still present. Hysteroscopic scissors were introduced and the polyp was excised. Afterwards, the endometrial cavity appeared clear. A few additional pictures were taken. The hysteroscope was removed. The tenaculum was removed from the anterior lip of the cervix. No bleeding was noted. The remainder of the vagina was cleansed and dried and the speculum was removed. The patient was cleansed and dried and taken out of the dorsal lithotomy position. She was awakened from anesthesia without difficulty and transferred to the recovery room in stable condition. The patient tolerated the procedure well. All sponge, lap, and instrument counts were correct at the end of the procedure. Estimated Blood Loss 5 IV Fluids 500 Urine Output -50.0 Drains No Packing No Pathology yes (endometrial curettings) Complications No immediate complications Condition stable Disposition same day
[2021-03-21] MEDS: fentaNYL CITRATE INJ (*CRX) 100 MCG/2 ML VIAL 25 MCG IV PUSH (11:16)
[2021-03-21] MEDS: KETOROLAC 30 MG/ML VIAL (*BKC) IV PUSH (11:27)
[2021-03-21 11:30] VITALS: BP 128/95; PULSE 65
[2021-03-21 11:55] VITALS: BP 110/69; PULSE 68
== END 2021-03-21 12:05 | disposition home or self-care (01) ==
PROVIDERS: Anesthesiology; PCP Internal Medicine; Visit Provider Student in an Organized Health Care Education/Training Program
PROC: 0U5B8ZZ Destruction of Endometrium, Via Natural or Artificial Opening Endoscopic (ICD-10-PCS; CPT 58563; principal; 2021-03-21 10:30)
DX: N95.0 Postmenopausal bleeding (principal); N84.0 Polyp of corpus uteri; E03.9 Hypothyroidism, unspecified; K21.9 Gastro-esophageal reflux disease without esophagitis; K58.9 Irritable bowel syndrome, unspecified; F41.9 Anxiety disorder, unspecified; Z85.72 Personal history of non-Hodgkin lymphomas
CPT/HCPCS: 58558; 36415; 85014; 85018; 88305; A9270; J1100; J1885; J2250; J2405; J2704; J3010; J7030; J7120

== ENCOUNTER → 2021-04-14 09:37 | Outpatient (CLI) | payer OTHER, SELFPAY ==
[2021-04-14 14:24] LABS: Influenza Control Positive
[2021-04-14 19:04] LABS: SARS-CoV-2 RNA PCR Negative
== END ==
PROVIDERS: PCP Internal Medicine; Visit Provider Nurse Practitioner
DX: R68.89 Other general symptoms and signs (principal); Z20.822 Contact with and (suspected) exposure to COVID-19
CPT/HCPCS: 87804; C9803; U0003; U0005

== ENCOUNTER 2021-05-29 12:41 | Outpatient (CLI) | payer OTHER, SELFPAY ==
--- NOTE | ~2021-05-29 | XR_ITS ---
XR_[id number]_CR DATE: 05/29/2021 13:05 INDICATION: Neck pain TECHNIQUE: AP, open-mouth, lateral views COMPARISON: None FINDINGS: There is straightening of cervical spine which may be due to muscle spasm. There is moderately severe loss of interspace height at C3-4 and C5-6. The remaining cervical intersp aces are well preserved. There is minimal posterior spurring at C3-4. There is mild posterior spurring and uncovertebral joint spurring at C5-6. C1 and C2 are normally aligned and the odontoid process is intact. No fracture or dislocation or lock ed facet or prevertebral soft tissue swelling. IMPRESSION: Straightening Degenerative changes at C3-4 and C5-C6 primarily Reviewed, dictated and finalized at [facility]. Reviewed, dictated and finalized at location [facility]. [employer] ADMINISTRATOR
== END 2021-05-29 12:42 | disposition home or self-care (01) ==
LOC: ANHIMG 12:44
PROVIDERS: PCP Internal Medicine; Visit Provider Internal Medicine
DX: M54.2 Cervicalgia (principal); M53.82 Other specified dorsopathies, cervical region
CPT/HCPCS: 72040

== ENCOUNTER 2022-01-15 11:16 | Outpatient (CLI) | payer OTHER, SELFPAY ==
--- NOTE | 2022-01-21 12:31 | WPDHOLTEREM ---
Holter/Event Monitor Holter/Event Monitor Date of procedure: 01/15/22 Holter/Event Procedure: 48 Hr Holter Monitor Indications: Palpitations Conclusion: 1. 48 hour holter monitor on 01/15/22. 2. Underlying rhythm is sinus rhythm. HR range 55-136 bpm; average HR 82 bpm. 3. There are 8 premature supraventricular complexes and 2 supraventricular couplets. No supraventricular tachycardia. 4. There are 38 premature ventricular complexes. No ventricular tachycardia. 5. No sinoatrial or atrioventricular blocks. No significant pauses greater than 2 seconds. 6. No symptoms available for correlation.
== END 2022-01-15 11:17 | disposition home or self-care (01) ==
LOC: ANHCARD 11:18
PROVIDERS: PCP Internal Medicine; Visit Provider Internal Medicine
DX: R00.2 Palpitations (principal)
CPT/HCPCS: 93225; 93226

== ENCOUNTER → 2022-01-19 14:50 | Outpatient (CLI) | payer OTHER, SELFPAY ==
--- NOTE | ~2022-01-19 | US_ITS ---
EXAMINATION: US axilla RT INDICATION: Localized enlarged lymph nodes TECHNIQUE: Limited ultrasound of the right axilla was performed. COMPARISON: 02/04/2021 FINDINGS: There are two right axillary lymph nodes corresponding to the area of palpable concern whic h measure 2.9 x 1.6 x 2.9 cm and 4.2 x 1.3 x 2.7 cm. Both demonstrate fatty minor with a thin cortex. No suspicious right axillary lymphadenopathy is identified. IMPRESSION: 1. Normal-appearing right axillary lymph nodes. BI-RADS Category 1: Negative Reviewed, dictated and finalized at location [facility].
== END ==
PROVIDERS: PCP Internal Medicine; Visit Provider Surgery
DX: R59.0 Localized enlarged lymph nodes (principal)
CPT/HCPCS: 76882

== ENCOUNTER 2022-02-25 | Day surgery (SDC) | payer OTHER, SELFPAY ==
[2022-02-18 14:51] VITALS: BMI 29.7
--- NOTE | 2022-02-18 14:56 | SUR.PREOP ---
Report to the Outpatient Waiting Room, entrance under the green pavilion located off [facility], at time _0700 on date _02/25/22 . Planned Procedure Time: _0900 . Time changes happen often and if your time is changed the preop area will call you the afternoon before. - You and your visitor will be asked to self-screen and do not enter if you have any COVID symptoms. - We encourage only one visitor and NO visitors under age 16 are allowed at this time. Your visitor will receive communication by the phone number that is given day of service. - The patient visitor is requested to social distance or may leave the building when not with patient due to restrictions. - A mask is required within the hospital. Patients may have clear liquids (water, carbonated beverages, clear teas, apple juice) until 3 hours prior to surgery with a maximum of 20 ounces. - No food from midnight until time of surgery - Infants may have breast milk until 4 hours before surgery, formula 6 hours prior to surgery. - Children will be allowed to drink immediately following surgery. If applicable, please bring a bottle or sippy cup to assist with drinking. Juice, water, soda, and popsicles are readily available. For infants on formula, please bring formula the day of surgery. Pacifiers are allowed. Take the following medications with a SIP of water the morning of surgery: _thyroid medication,xanax,percocet if needed Medications to discontinue per physician ____vitamin supplements Date to take last dose__02/22/22 Please no make-up, nail lao, hairspray, perfume, deodorant, or body powder the day of surgery. No jewelry (including any body piercings) or valuables the day of surgery, leave them at home. Please take a shower or bath the night before, or the morning of, surgery with an antibacterial soap. Wear comfortable, loose fitting clothing. Children are encouraged to wear pajamas. - Jewelry must be removed prior to entering the operating room. Rings and piercings that are not removed may be cut off. - The hospital will not accept responsibility for valuables. - Please leave all valuables, including medications, at home the day of surgery. If you are going home after surgery, a licensed taxi truck driver must drive you home. - NO public transportation without another adult. - We recommend that an adult stay with you for 24 hours following discharge. - We also recommend that you do not drive, make important decision, drink alcoholic beverages, or take any drugs that were not prescribed by your health care provider for at least 24 hours after your discharge time. For Pediatric surgeries, we recommend two adults accompany the child home. Follow any additional instructions given to you from your surgeon. If you or anyone in your household have experienced Covid symptoms in the past week, please notify your surgeon or the nurse liaison at the phone number below for possible testing. Telephone instructions given to crystal miguel and asked if any additional questions and then verbalized understanding. Patient advised to call surgeon office or pre surgery nurse liaison [phone] if any additional questions.
[2022-02-25] VITALS (8 sets, daily range): BP systolic 111–129; BP diastolic 69–87; PULSE 60–74; RESP 12–20; TEMP 36.1–36.4; O2SAT 97–100
[2022-02-25] MEDS: LACTATED RINGERS 1,000 ML 30 ML IV CONT ×2 (06:38→08:20)
[2022-02-25 07:03] LABS: Anion Gap 9 mmol/L (8-16); Blood Urea Nitrogen 16 mg/dL (7-17); Calcium 9.4 mg/dL (8.4-10.2); Carbon Dioxide 22 mmol/L (22-30); Chloride 104 mmol/L (98-107); Estimated CRCL calculation 92 ml/min; Estimated Glomerular Filt Rate > 60; Glucose 115 mg/dL (65-110); Potassium 4.1 mmol/L (3.4-5.0); Sodium 135 mmol/L (137-145)
--- NOTE | 2022-02-25 07:04 | WPDHPUPDATE1 ---
History and Physical Update Update Date/Time: 02/25/22 07:04 History and Physical has been reviewed, including an updated exam of the patient. There are NO changes in the patient's condition. Risks, benefits, and alternatives have been discussed and questions answered. Patient agrees to proceed with procedure.
--- NOTE | 2022-02-25 07:16 | WPDANESEPPF ---
Anes - Initial Pre Proc Eval Procedure: Operation Date: 02/25/22 07:30 Proposed Procedures p Right Axillary Lymph Node Biopsy - Nilton Gallagher MD Date/Time: 02/25/22 07:16 Surgeon: Nilton Gallagher MD Pre Op Diagnosis: right axillary lymphadenopathy Patient Data Age: 56 Gender: F Height: 1.73 m Weight: 89.4 kg Last Vital Signs Temp 36.1 C L 02/25/22 06:19 Pulse 73 02/25/22 06:19 Resp 16 02/25/22 06:19 BP 116/87 02/25/22 06:19 Pulse Ox 99 02/25/22 06:19 O2 Del Method Room Air 02/25/22 06:19 Allergies Allergy/AdvReac Type Severity Reaction Status Date / Time Penicillins Allergy Severe SWELLING Verified 02/25/22 06:48 ciprofloxacin Allergy Intermediate RED STREAK Verified 02/25/22 06:48 TO ARM, SWELLING Home Medications Medication Instructions Recorded Confirmed Type cholecalciferol (vitamin D3) 125 5,000 unit PO DAILY 03/23/19 02/25/22 History mcg (5,000 unit) tablet omega-3 fatty acids 300 mg capsule 1,500 mg PO DAILY 03/23/19 02/25/22 History spironolactone 25 mg tablet 25 mg PO BID 06/22/19 02/25/22 History progesterone micronized 200 mg 200 mg PO DAILY 05/21/20 02/25/22 History capsule multivitamin (Daily Multi-Vitamin 1 tablet PO DAILY 12/27/20 02/25/22 History tablet) thyroid (pork) 120 mg tablet 120 mg PO DAILY 12/27/20 02/25/22 History ([place] Thyroid) alprazolam 1 mg tablet (Xanax) 1 mg PO HS PRN Anxiety 03/10/21 02/25/22 History albuterol sulfate 90 mcg/actuation 1 puff inhalation Q4H PRN 04/22/21 02/25/22 Rx aerosol inhaler shortness of breath or wheezing #8.5 grams ondansetron 4 mg disintegrating 4 mg PO Q8H PRN nausea and 05/12/21 02/25/22 Rx tablet vomiting #30 tabs fluticasone propionate 50 1 spray intranasal DAILY #16 grams 05/23/21 02/25/22 Rx mcg/actuation nasal spray,suspension testosterone 75 mg implant pellet 112.5 mg subcut [id number] 11/21/21 02/25/22 History cetirizine 10 mg tablet 10 mg PO DAILY #90 tabs 12/04/21 02/25/22 Rx montelukast 10 mg tablet 10 mg PO DAILY #90 tabs 01/08/22 02/25/22 Rx (Singulair) rabeprazole 20 mg tablet,delayed 20 mg PO BID 3 months #180 tabs 01/23/22 02/25/22 Rx release (AcipHex) oxycodone-acetaminophen 5 mg-325 1 tablet PO DAILY PRN pain 02/18/22 02/25/22 History mg tablet rimegepant 75 mg disintegrating 75 mg PO PRN PRN Migraine Headache 02/18/22 02/25/22 History tablet (Nurtec ODT) terbinafine HCl 250 mg tablet 250 mg PO DAILY 02/18/22 02/25/22 History Laboratory Tests 02/25/22 06:30 Sodium 135 mmol/L L mmol/L (137-145) Potassium 4.1 mmol/L mmol/L (3.4-5.0) Chloride 104 mmol/L mmol/L (98-107) Carbon Dioxide 22 mmol/L mmol/L (22-30) Anion Gap 9 mmol/L mmol/L (8-16) BUN 16 mg/dL mg/dL (7-17) Creatinine 0.70 mg/dL mg/dL (0.7-1.0) Estim Creat Clear Calc 92 ml/min ml/min Estimated GFR > 60 (59 - ) Glucose 115 mg/dL H mg/dL (65-110) Calcium 9.4 mg/dL mg/dL (8.4-10.2) Patient hx anesthesia problems: post op nausea/vomiting Family hx anesthesia problems: none Results Review: All pre-operative results and documents have been reviewed as part of the pre-operative evaluation. [facility] Past Medical History Medical History Anxiety Colon polyp Diverticulosis GERD (gastroesophageal reflux disease) Hypothyroidism Irritable bowel Irritable bowel syndrome with constipation Migraines Non Hodgkin's lymphoma Vaginal delivery x4 Surgical History Surgical History History of bilateral breast reduction surgery History of cholecystectomy [place] teeth removed Family History Family History Sibling Family history of malignant neoplasm of breast in first degree relative Family history of obesity Family history of osteoporosis Family
[2022-02-25] MEDS: ceFAZolin 2 GM/D5W 50 ML 2 GM/50 ML BAG IVPB (07:24)
[2022-02-25] MEDS: SCOPOLAMINE 1.5 MG PATCH TRANSDERM (07:30)
[2022-02-25] MEDS: BUPIVACAINE/EPINEPHRINE 0.25% 50 ML VIAL INFILTRATE (07:45)
--- NOTE | 2022-02-25 08:07 | SUR.OPER ---
Right Axillary Lymph Nodes Bx sent Fresh per GAIL Blanca to Lab. Received by Danelle in Lab.
--- NOTE | 2022-02-25 08:18 | W.PM.PROC2 ---
Procedure Note - Detailed Date of Procedure 02/25/22 Pre-op Diagnosis right axillary lymphadenopathy Post-op Diagnosis Same Procedure Performed Deep right axillary lymph node biopsy Surgeon Nilton Gallagher MD Junction Maker Nelly Montiel [facility] Anesthesia General (LMA) and Local (0.25% Marcaine with epinephrine) Indications Patient has a history of painful left axillary lymph nodes. These looked in oculus by exam and imaging but once biopsied showed non-Hodgkin's lymphoma. Treatment for that included bone marrow transplant. Patient now has right axillary pain and some benign-appearing axillary nodes as large as 4 cm in size. She is taken to surgery now for right axillary lymph node biopsy. Findings Deep right axillary nodes, mildly enlarged. Description of Procedure Patient was taken to surgery and anesthesia was introduced. The right arm and right axilla were prepped and draped such as the arm was mobile and in the field. Palpation of the axilla was carried out. No particular nodules of substance were appreciated. The hairline incision was drawn on the skin. Local was infiltrated into the skin and the subcutaneous. Incision was made and dissection was carried down through the subcutaneous fat. We then entered the axillary fat and the latissimus was noted at the bottom of the incision. I was still not able to palpate any significant nodes until going under the pectoralis major muscle. There were several palpable nodes here that was slightly enlarged. The pectoralis was elevated and I carefully dissected out at least 3 or 4 lymph nodes. These were all sent to pathology fresh. I again checked the axilla thoroughly and found no other lymph nodes that were significant. We then inspected for hemostasis which was good. The wound was closed with a deep layer of interrupted 3-0 Monocryl. Subcuticular interrupted 3-0 Monocryl skin sutures were then placed. Finally a running 4-0 Monocryl skin suture was placed. The wound was dressed with Exofin surgical adhesive. Patient was awakened and taken to recovery in good condition. Sponge and needle counts were correct x2. Estimated Blood Loss -5 Drains No Packing No Pathology Yes (Deep right axillary lymph nodes) Complications No immediate complications Condition Stable Disposition PACU [facility] Billing Surgery - Charge Forward: Surgery Billing (Deep right axillary lymph node biopsy.)
[2022-02-25] MEDS: oxyCODONE HCL (*CRX) 5 MG TAB IR PO (09:30)
== END 2022-02-25 10:10 | disposition home or self-care (01) ==
PROVIDERS: Anesthesiology; PCP Internal Medicine; Visit Provider Surgery
PROC: (CPT 38525; principal; 2022-02-25 07:30)
DX: R59.0 Localized enlarged lymph nodes (principal); E03.9 Hypothyroidism, unspecified; K58.1 Irritable bowel syndrome with constipation; K21.9 Gastro-esophageal reflux disease without esophagitis; F41.9 Anxiety disorder, unspecified; Z85.72 Personal history of non-Hodgkin lymphomas; Z79.51 Long term (current) use of inhaled steroids
CPT/HCPCS: 38525; 36415; 80048; 88305; A9270; C1713; J0690; J1100; J2405; J2704; J3010; J7120

== ENCOUNTER 2022-08-25 15:10 | Outpatient (CLI) | payer OTHER, SELFPAY ==
--- NOTE | ~2022-08-25 | XR_ITS ---
XR shoulder LT min 2V 08/25/2022 15:28 Indication: Shoulder pain for 2 weeks Procedure: 4 views left shoulder Comparison: 05/25/2018 Findings: There is anatomic alignment. No fracture or traumatic malalignment. No significant soft tis donald abnormality. No foreign bodies. There are surgical clips in the left axilla. Impression: 1: No acute bone or joint abnormality. Reviewed, dictated and finalized at location L. Impression: 1: No acute bone or joint abnormality.
== END 2022-08-25 15:11 | disposition home or self-care (01) ==
PROVIDERS: PCP Family Medicine; Visit Provider Family Medicine
DX: M25.512 Pain in left shoulder (principal)
CPT/HCPCS: 73030

== ENCOUNTER → 2022-08-27 12:15 | Outpatient (CLI) | payer OTHER, SELFPAY ==
--- NOTE | ~2022-08-27 | MM_ITS ---
EXAMINATION: MM screening ant BI w thomas HISTORY: Screening mammogram TECHNIQUE: Craniocaudal and mediolateral oblique 3-D tomosynthesis images were obtained and synthetic 2-D images were generated. CAD analysis was submitted and interpreted. COMPARISON: 01/10/2021, 12/27/2019 BREAST PARENCHYMAL COMPOSITION: There are scattered areas of fibroglandular density. FINDINGS: No suspicious mass, calcification, or architectural distortion are identified in either ady ast to suggest malignancy. There has been no suspicious interval change. IMPRESSION: 1. No mammographic evidence of malignancy. 2. Recommend routine screening mammography in one year. BI-RADS Category 1: Negative Reviewed, dictated and finalized at location A.
== END ==
PROVIDERS: PCP Family Medicine; Visit Provider Student in an Organized Health Care Education/Training Program
DX: Z12.31 Encounter for screening mammogram for malignant neoplasm of breast (principal)
CPT/HCPCS: 77063; 77067

== ENCOUNTER 2023-12-24 13:25 | Outpatient (CLI) | payer OTHER, SELFPAY ==
--- NOTE | ~2023-12-24 | MM_ITS ---
EXAMINATION: MM screening ant BI w thomas HISTORY: Screening TECHNIQUE: Craniocaudal and mediolateral oblique 3-D tomosynthesis images were obtained and synthetic 2-D images were generated. CAD analysis was submitted and interpreted. COMPARISON: Comparison to multiple prior studies sequentially, with oldest reviewed study dated 12/2019. BREAST PARENCHYMAL COMPOSITION: Not dense: There are scattered areas of fibroglandular density. FINDINGS: There is no evidence of suspicious mass, calcification, or architectural distortion to sugg est malignancy in either breast. There has been no suspicious interval change. There are changes of b oth breasts consistent with breast reduction surgery. IMPRESSION: 1. No mammographic evidence of malignancy. 2. Recommend routine screening mammography in one year. BI-RADS Category 1: Negative Reviewed, dictated and finalized at location B.
== END 2023-12-24 13:26 | disposition home or self-care (01) ==
LOC: MICIMG 13:26
PROVIDERS: PCP Nurse Practitioner Family; Visit Provider Nurse Practitioner Family
DX: Z12.31 Encounter for screening mammogram for malignant neoplasm of breast (principal)
CPT/HCPCS: 77063; 77067

== ENCOUNTER 2024-12-29 13:22 | Outpatient (CLI) | payer OTHER, SELFPAY ==
--- NOTE | ~2024-12-29 | MM_ITS ---
EXAMINATION: MM screening [facility] BI w thomas HISTORY: Screening TECHNIQUE: Craniocaudal and mediolateral oblique 3-D tomosynthesis images were obtained and synthetic 2-D images were generated. CAD analysis was submitted and interpreted. COMPARISON: Mammograms from 12/24/2023 and 08/27/2022 BREAST PARENCHYMAL COMPOSITION: The breasts are heterogeneously dense, which may obscure small masses. FINDINGS: There is no evidence of suspicious mass, calcification, or architectural distortion to suggest malignancy. There has been no suspicious interval change. IMPRESSION: 1. No mammographic evidence of malignancy. Recommend routine screening mammography in one year. BI-RADS Category 2: Benign finding(s) Reviewed, dictated and finalized at location Q. IMPRESSION: 1. No mammographic evidence of malignancy. Recommend routine screening mammogra phy in one year. BI-RADS Category 2: Benign finding(s)
== END 2024-12-29 13:23 | disposition home or self-care (01) ==
LOC: MICIMG 13:23
PROVIDERS: PCP Nurse Practitioner Family; Visit Provider Nurse Practitioner Obstetrics & Gynecology
DX: Z12.31 Encounter for screening mammogram for malignant neoplasm of breast (principal)
CPT/HCPCS: 77063; 77067

== ENCOUNTER 2025-02-01 08:48 | Outpatient (CLI) | payer OTHER, SELFPAY ==
--- NOTE | ~2025-02-01 | MR_ITS ---
EXAMINATION: MR brain/brain stem wo con DATE: 02/01/2025 09:20 INDICATION: Migraine with aura, not intractable. TECHNIQUE: Magnetic resonance imaging (MRI) of the brain and brainstem was performed without intravenous contrast. COMPARISON: None. FINDINGS: There is no intracranial hemorrhage, acute infarction, or abnormal intracranial mass lesion. There are scattered areas of nonspecific increased T2- weighted signal intensity in the cerebral white matter and skylar, which is within normal limits for the patient's age. The ventricles are normal in size. There is mucosal thickening in the paranasal sinuses. The orbits are normal. The mastoid air cells are normal. IMPRESSION: 1. Normal aging brain. Reviewed, dictated and finalized at location E. IMPRESSION: 1. Normal aging brain.
--- OUTSIDE RECORDS SUMMARY | 2025-02-01 09:19 | XMS_ITS | Encounter Summary ---
Author Organization [facility] Address [address] [place] [address] Care Team Providers Care Entry Analyst Name Role Phone Thai Murrell DO Primary Care Provider [phone] Encounter Details Date Type Department Care Team (Late st Contact Info) Description 01/14/2024 Lab Requisition [facility] - DermPath Lab [address] [place] [id number] Terrie Amor PA [address] [place] [address] Neoplasm of uncertain behavior of skin Social History Tobacco Use Types Packs/Day Years Used Date Smoking Tobacco: Never Assessed Comments Unknown Sex and Gender Information Value Date Recorded Sex Assigned at Not on file Legal Sex Female 4:05 AM CDT Gender Identity Not on file Sexual Orientation Not on file documented as of this encounter Plan of Treatment Not on file documented as of this encounter Procedures Procedure Name Priority Date/Time Associated Diagnosis Comments DERMATOPATHOLOGY Routine 01/14/2024 12:0 0 AM CDT Neoplasm of uncertain behavior of skin documented in this encounter Results * DERMATOPATHOLOGY (01/14/2024 12:00 AM CDT) Case Report Dermatopathology Report Case: [id number] Authorizing Provider: Terrie Amor PA Collected: 01/14/2024 12:00 AM Ordering Location: [facility] - Received: 01/17/2024 11:27 AM DermPath Lab Pathologist: Josefina Justin MD Specimen: Skin, left forehead 11:30 AM CDT DERMATOPATHOLOGY LABORATORY Final Diagnosis Specimen A. SKIN, left forehead: BASAL CELL CARCINOMA, NODULAR TYPE (C44.319) 11:30 AM T DERMATOPATHOLOGY LABORATORY at 1130 CDT Clinical History BCC 11:30 AM T DERMATOPATHOLOGY LABORATORY Gross Description Specimen A: Received is one formalin filled container labeled with the patient's name and designated left forehead. The specimen consists of a shave biopsy measuring 7x5x1 mm. Jar 0. 11:30 AM T DERMATOPATHOLOGY LABORATORY Microscopic Description Specimen A. SKIN, left forehead: Within the dermis there are aggregates of basaloid cells with a high nuclear to cytoplasmic ratio and peripheral palisading. 11:30 AM T DERMATOPATHOLOGY LABORATORY Disclaimer An external and internal positive and negative controls are appropriate for the histochemical, immunohistochemical and immunofluorescence stain(s) in this case (if any), except where stated explicitly. The performance characteristics of the stain(s) cited in this report were developed and its performance characteristic determined by the Dermatopathology Laboratory at [facility], directed by Dr. Irma Clark. These tests need not be, and therefore are not, approved by the [place] Food and Drug Administration. The tests are used for clinical purposes. Billing Codes Specimen Charges Stain Charges 20209 1 11:30 AM CDT DERMATOPATHOLOGY LABORATORY Embedded Images 11:30 AM CDT DERMATOPATHOLOGY LABORATORY Pathology/Cytolog y TISSUE SPECIMEN FROM SKIN / Unknown 01/14/2024 01/17/2024 11:27 AM CDT [facility] - PATHOLOGY/CYTOLOGY OR DERABLES Final Result DERMATOPATHOLOGY LABORATORY [facility] - Department of Dermatology [address], [address] [phone] documented in this encounter Visit Diagnoses Diagnosis Neoplasm of uncertain behavior of skin documented in this encounter Care Teams Entry Analyst Relationship Specialty Start Date End Date Thai Murrell DO [address] [place] [address] PCP - General 03/09/22 documented as of this encounter
--- OUTSIDE RECORDS SUMMARY | 2025-02-01 09:19 | XMS_ITS | Patient Health Record ---
Author Organization [facility] Address [address] [place] [address] Care Team Providers Care Parking Station Attendant Name Role Phone Michael Lundberg Unavailable [phone] Allergies Allergen (clinical drug ingredient) Drug/Non Drug Allergy documented on EMR Reaction Allergy Type Onset Date Status ciprofloxacin Cipro Unknown Drug Allergy 09/26/2020 Ac tive Substance with penicillin structure and antibacterial mechanism of action (substance) Penicillins Unknown Drug Allergy 09/26/2020 Active Results Component Value Reference Range Notes UDT Reviewed date:09/26/2024 05:44:02 PM Interpretation: Performing Lab: Notes/Report: THC N 0 - 50 ng/ml Cocaine N 0 - 300 ng/ml Amphetamine N 0 - 1000 ng/ml Buprenorphine (BUP) N 0 - 10 ng/ml Secobarbital (Bar) N 0 - 300 ng/ml Oxazepam (BZO) P 0 - 300 ng/ml 6-ontjaovuks-4,9-cflzsvbv-8,3-diphenylpyrrolidine (DAVID P) N 0 - 300 ng/ml Methamphetamine (MET) N 0 - 1000 ng/ml Methylenedioxymethamphetamine (MDMA) N 0 - 500 ng/ml Morphine (MOP 300/[id number]) N 0 - 300 ng/ml Methadone (MTD) N 0 - 300 ng/ml Phencyclidine (PCP) N 0 - 25 ng/ml Nortriptyline (TCA) N 0 - 1000 ng/ml Oxycodone P 0 - 300 ng/ml x N 0 - 300 ng/ml Reason For Referral No Information Medications Medication SIG (Take, Route, Frequency, Duration) Notes Start Date End Date Status ALPRAZolam 1 MG Tablet 1 tablet Oral Twice a day; Duration: 30 days As needed 09/26/2024 Active ProAir HFA 108 (90 Base) MCG/ACT Aerosol Solution Inhalation 08/13/2023 Active oxyCODONE-Acetaminophe n 5-325 MG Tablet Oral 08/13/2023 Active Independence Thyroid 120 MG Tablet Oral 08/13/2023 Active Spironolactone 50 MG Tablet Oral 08/13/2023 Active Nurtec 75 MG Tablet Disintegrating Oral *Reorder from [facility] for eRx and Interaction Alerts* 08/13/2023 Active ALPRAZolam 1 MG Tablet 1 tablet Oral Twice a day; Duration: 30 days 09/19/2024 Active Fluticasone Propionate Diskus 50 MCG/ACT Aerosol Powder Breath Activated Inhalation *Reorder from [facility] for eRx and Interaction Alerts* 08/13/2023 Active Independence Thyroid 15 MG Tablet Oral 08/13/2023 Active RABEprazole Sodium 20 MG Tablet Delayed Release Oral 08/13/2023 Active Prometrium 200 MG Capsule Oral 08/13/2023 Active Cetirizine HCl 10 MG Tablet Oral 08/13/2023 Active Montelukast Sodium 10 MG Tablet Oral 08/13/2023 Active Ondansetron 4 MG Tablet Disintegrating Oral 08/13/2023 Active Immunizations Vaccine Route Administration Date Status Comme nts Influenza, injectable, MDCK, preservative free Unknown 01/11/2020 Administered Moderna Covid-19 Vaccine 1st dose Unknown 07/03/2020 Ad ministered Moderna Covid-19 Vaccine 1st dose Unknown 07/31/2020 Ad ministered Moderna Covid-19 Vaccine 1st dose Unknown 04/15/2021 Ad ministered Zoster Unknown 01/11/2020 Administered Zoster Unknown 03/29/2020 Administered Social History Tobacco Use: Social History Observation Description Date Details (start date - stop date) Never Smoker NA - NA Sex Assigned At : Social History Observation Description Sex Assigned At Female Social History Miscellaneous: Social Info Question Answer Notes Advance Care Planning Are you your own decision-maker Yes Do you have Power of Pacs Administrator for Health or Medi yonny? No Tobacco Use: Social Info Question Answer Notes Tobacco Control (Standard) Tobacco use: Nonsmoker Additional Details Category Social Info Options Details Migrated Social History Migrated Social History Alcohol Intake: None 06/26/2022,Tobacco Years: Never smoker 05/11/2019 Problems Problem Type SNOMED Code ICD Code Onset Dates Problem Status W/U Status Risk Notes Problem Generalized anxiety disorder (13481963) Generalized anxiety disorder (F41.1) Active confirmed Problem Posttraumatic stress disorder (06507224) Post-traumatic stress disorder, chronic (F43.12) Active confirmed Problem Primary insomnia (3566396) Primary insomnia (F51.01) Active confirmed Vital Signs Heart Rate 97 /min 09/26/2024 Height-cm 172.72 cm 09/26/2024 Blood pressure diastolic 80 mm Hg 09/26/2024 Weight-kg 77.11 kg 09/26/2024 Height 68.00 in 09/26/2024 Blood pressure systolic 117 mm Hg 09/26/2024 Weight 170 lbs 09/26/2024 BMI 25.85 kg/m2 09/26/2024 Encounters Encounter Location Date Provider Diagnosis [facility] [employer] [place] [address] [address] [facility] [address] [address] 03/07/2024 Michael Lundberg Generalized anxiety disorder F41.1 ; Primary insomnia F51.01 and Post-traumatic stress disorder, chronic F43.12 [facility] [employer] [place] [address] [address] [facility] [address] [address] 09/26/2024 Michael Lundberg Negative depression screening Z13.31 ; Encounter for screening for cardiovascular disorders Z13.6 ; Generalized anxiety disorder F41.1 ; Primary insomnia F51.01 and Post-traumatic stress disorder, chronic F43.12 [facility] [employer] [place] [address] [facility] [address] [address] 05/15/2024 Michael Lundberg Assessments Encounter Date Diagnosis (ICD Code) Assessment Notes Treatment Notes Treatment Clinical Notes Section Notes 03/07/2024 Primary insomnia (ICD-10 - F51.01) stable 1. Anxiety Disorder: - Patient reports taking Xanax nightly, sometimes one and a half tablets, and occasionally during the day for episodes. - Sleep has improved with Xanax, achieving 5 to 7 hours of sleep. Plan: - Continue Xanax as prescribed. - Monitor for any side effects or changes in anxiety levels. - Encourage non-pharmacolog ical methods for managing anxiety, such as deep breathing exercises, mindfulness, and regular physical activity. 2. Insomnia: - Patient reports improved sleep with Xanax, achieving 5 to 7 hours of sleep per night. Plan: - Continue Xanax as prescribed. - Encourage good sleep hygiene practices, including maintaining a consistent sleep schedule, creating a relaxing bedtime routine, and avoiding stimulants close to bedtime. 3. Follow-up Appointment: Plan: - Schedule a follow-up appointment in six months to assess patient's progress, medication effectiveness, and any changes in symptoms or health status. 09/26/2024 Negative depression screening (ICD-10 - Z13.31) 03/07/2024 Generalized anxiety disorder (ICD-10 - F41.1) 1. Anxiety Disorder: - Patient reports taking Xanax nightly, sometimes one and a half tablets, and occasionally during the day for episodes. - Sleep has improved with Xanax, achieving 5 to 7 hours of sleep. Plan: - Continue Xanax as prescribed. - Monitor for any side effects or changes in anxiety levels. - Encourage non-pharmacolog ical methods for managing anxiety, such as deep breathing exercises, mindfulness, and regular physical activity. 2. Insomnia: - Patient reports improved sleep with Xanax, achieving 5 to 7 hours of sleep per night. Plan: - Continue Xanax as prescribed. - Encourage good sleep hygiene practices, including maintaining a consistent sleep schedule, creating a relaxing bedtime routine, and avoiding stimulants close to bedtime. 3. Follow-up Appointment: Plan: - Schedule a follow-up appointment in six months to assess patient's progress, medication effectiveness, and any changes in symptoms or health status. 03/07/2024 Post-traumatic stress disorder, chronic (ICD-10 - F43.12) 1. Anxiety Disorder: - Patient reports taking Xanax nightly, sometimes one and a half tablets, and occasionally during the day for episodes. - Sleep has improved with Xanax, achieving 5 to 7 hours of sleep. Plan: - Continue Xanax as prescribed. - Monitor for any side effects or changes in anxiety levels. - Encourage non-pharmacolog ical methods for managing anxiety, such as deep breathing exercises, mindfulness, and regular physical activity. 2. Insomnia: - Patient reports improved sleep with Xanax, achieving 5 to 7 hours of sleep per night. Plan: - Continue Xanax as prescribed. - Encourage good sleep hygiene practices, including maintaining a consistent sleep schedule, creating a relaxing bedtime routine, and avoiding stimulants close to bedtime. 3. Follow-up Appointment: Plan: - Schedule a follow-up appointment in six months to assess patient's progress, medication effectiveness, and any changes in symptoms or health status. 09/26/2024 Encounter for screening for cardiovascular disorders (ICD-10 - Z13.6) 09/26/2024 Generalized anxiety disorder (ICD-10 - F41.1) 09/26/2024 Primary insomnia (ICD-10 - F51.01) stable 09/26/2024 Post-traumatic stress disorder, chronic (ICD-10 - F43.12) 09/26/2024 Other Jennifer Coyne, a female patient with a history of anxiety, presents for medication management and reports recent recovery from a double ear infection. Anxiety Disorder Assessment: Patient continues to manage anxiety with alprazolam 1 mg twice daily. She reports the medication is still working well, sometimes requiring less than the prescribed dose but never exceeding it. No significant changes or concerns reported regarding anxiety symptoms. Plan: - Continue alprazolam 1 mg PO BID - Refill alprazolam prescription for 6 months - Follow up in 6 months for medication management Recent Ear Infection Assessment: Patient reports recovering from a double ear infection that lasted about a month. She completed a course of antibiotics on Wednesday, with the last antibiotic being from a family she is allergic to. Patient managed potential allergic reactions by taking Benadryl concurrently. She also mentions taking steroids for an extended period, expressing concern about potential immune system suppression. Plan: - Monitor for any lingering symptoms or complications from the recent ear infection - Educate on potential immune system effects of prolonged steroid use the note is transcribed using speech recognition software. It is a reflection of a visit with the patient. It might have some inaccuracy, including medication names and transcribing errors, though efforts have been made to correct them. Jennifer Coyne, a female patient with a history of anxiety, presents for medication management and reports recent recovery from a double ear infection. Anxiety Disorder Assessment: Patient continues to manage anxiety with alprazolam 1 mg twice daily. She reports the medication is still working well, sometimes requiring less than the prescribed dose but never exceeding it. No significant changes or concerns reported regarding anxiety symptoms. Plan: - Continue alprazolam 1 mg PO BID - Refill alprazolam prescription for 6 months - Follow up in 6 months for medication management the note is transcribed using speech recognition software. It is a reflection of a visit with the patient. It might have some inaccuracy, including medication names and transcribing errors, though efforts have been made to correct them. Plan Of Treatment Next Appt Details Provider Name:Michael vasquez, 03/28/2025 04:45:00 PM, [address] [facility] [address] [facility] [address], [facility] [address], [place], [address], Insurance Providers Payer Name Payer Address Payer Phone Subscriber Number Group Number Insured Name Patient Relationship to Insured Coverage Start Date Coverage End Date formerly [facility] [address] [place] [address] [id number] DEVIN COYNE Spouse - patient is the spouse of the insured Medical (General) History Medical History History ICD Code Problems: Chronic post-traumatic stress disorder Generalized anxiety disorder Primary insomnia , Surgical History Surgery Date(Month/Year) Unlisted procedure breast (96757) Tonsilectomy/adenoids Removal of gallbladder (72190) Any surgical history
--- OUTSIDE RECORDS SUMMARY | 2025-02-01 09:19 | XMS_ITS | Clinical Summary ---
Author Organization [facility] Address [address] [address] Care Team Providers Care Induction Coordination Power Engineer Name Role Phone Thai Murrell Paula DO Primary Care Provider [phone] Source Comments [facility],non-owned Affiliates and Associated Physician Practices is amultiple site organization consisting of ambulatory clinics and hospital sitesin [place], [place], [place] and [place]. This disclosure is being madepursuant to the Care Everywhere program and may not contain all information available regarding this patient. Last updated 18.[facility] Social History Tobacco Use Types Packs/Day Years Used Date Smoking Tobacco: Never Assessed Comments Unknown Sex and Gender Information Value Date Recorded Sex Assigned at Not on file Legal Sex Female 4:05 AM CDT Gender Identity Not on file Sexual Orientation Not on file Plan of Treatment Health Maintenance Due Date Last Done Comments COLOGUARD (AGES 45-75) - COL ON CA SCREENING 1966 COLON MONITORING 1966 COLONOSCOPY - COLON CA SCREENING 1966 CT COLONOGRAPHY - COLON CA SCREENING 1966 Colorectal Cancer Screening 1966 FIT - COLON CA SCREENING 1966 FLEX SIG - COLON CA SCREENING 1966 LIPID TESTING 1966 MAMMOGRAM 1966 HIV SCREENING 1981 HEPATITIS C SCREENING 10/11/1984 DTAP/TDAP/TD VACCINES (1 - Tdap) 1985 HEPATITIS B VACCINE (1 of 3 - 19+ 3-dose series) 1985 PAP SMEAR 10/17/1987 PNEUMOCOCCAL VACCINE 50+ (1 of 1 - PCV) 2016 ZOSTER VACCINE (1 of 2) 2016 DEPRESSION SCREENING 04/19/2024 COVID-19 VACCINE ( - 2023-2 5 season) 2024 INFLUENZA VACCINE (#1) 2024 HIB VACCINE Aged Out No longer eligi ble based on patient's age to complete this topic HPV VACCINE Aged Out No longer eligi ble based on patient's age to complete this topic MENINGOCOCCAL (Group B) VACC INE SHARED DECISION-MAKING Aged Out No longer eligibl e based on patient's age to complete this topic MENINGOCOCCAL GROUPS A/C/Y/W VACCINE Aged Out No longer eligible b ased on patient's age to complete this topic Insurance Care Teams Induction Coordination Power Engineer Relationship Specialty Start Date End Date Thai Murrell DO [address] [place], [place] [id number] PCP - General 03/09/22
--- OUTSIDE RECORDS SUMMARY | 2025-02-01 09:19 | XMS_ITS | Clinical Summary ---
Author Organization [facility] Address [address] [place] [address] Care Team Providers Care Professor Of Voice Name Role Phone Jeferson Guzman MD Primary Care Provider [phone] Allergies Active Allergy Reactions Criticality Noted Date Comments Ciprofloxacin Itching,Redness Low 01/08/2021 Penicillins Swelling Medium 01/08/2021 Medications albuterol HFA (PROVENTIL HFA,VENTOLIN HFA,PROAIR HFA) 90 mcg/actuation inhaler Inhale 2 puffs every 4 (four) hours as needed for wheezing 2 Active ALPRAZolam (XANAX) 1 mg tablet Take 0.5 mg by mouth 2 (two) times a day as needed for anxiety or sleep 1 Active cetirizine (ZyrTEC) 10 mg tabletIndicatio ns:Allergic Rhinitis Take 10 mg by mouth nightly 1 Active famotidine (PEPCID) 20 mg tabletIndicatio ns:gastroesopha geal reflux disease Take 20 mg by mouth nightly 1 Active ferrous sulfate 325 mg (65 mg of elemental iron) tabletIndicatio ns:Iron Deficiency Anemia Take 1 tablet by mouth daily with breakfast 1 Active montelukast (SINGULAIR) 10 mg tabletIndicatio ns:Seasonal Allergic Rhinitis Take 10 mg by mouth every morning 1 Active oxyCODONE-aceta minophen (PERCOCET) 5-325 mg per tabletIndicatio ns:Pain Take 1 tablet by mouth nightly 1 Active progesterone (PROMETRIUM) 200 mg capsule Take 200 mg by mouth nightly [address] (ACIPHEX) 20 mg EC tabletIndicatio ns:GERD Take 20 mg by mouth every morning 1 Active spironolactone (ALDACTONE) 50 mg tabletIndicatio ns:hormones Take 50 mg by mouth 2 (two) times a day 1 Active thyroid (ARMOUR THYROID) 120 mg tabletIndicatio ns:hypothyroidi sm Take 120 mg by mouth administrative office manager before breakfast 1 Active UNABLE TO FINDIndications :supplement Take by mouth every morning Med Name: Methyl Boost (B vitamins) Active UNABLE TO FINDIndications :supplement Take by mouth every morning Med Name: DIM Active multivitamin capsuleIndicati ons:Vitamin Deficiency Prevention Take 1 capsule by mouth every morning Active ccddv-3-nst-epa -dpa-fish oil 1,050-1,200 mg capsuleIndicati ons:supplement Take 1 capsule by mouth every morning Active cholecalciferol (VITAMIN D-3) 5,000 unit capsuleIndicati ons:supplement Take 5,000 Units by mouth every morning Active acetaminophen/p amabrom (MIDOL ORAL) Take by mouth as needed (pain) Active acetaminophen (TYLENOL) 500 mg tablet Take 2 tablets (1,000 mg total) by mouth every 8 (eight) hours 30 tablet 1 2 Active polyethylene glycol (MIRALAX) 17 gram packetIndicatio ns:constipation Take 1 packet (17 g total) by mouth daily 30 packet 1 2 Active oxyCODONE (ROXICODONE) 5 mg immediate release tabletIndicatio ns:Pain Take 1 tablet (5 mg total) by mouth every 4 (four) hours as needed for pain 8 tablet 2 Active Active Problems Problem Noted Date Diagnosed Date Hemorrhoids 06/18/2021 Overview (06/18/2021): Added automatically from request for surgery [id number] History of non-Hodgkin's lymphoma 05/07/2021 Hypothyroidism 05/07/2021 GERD (gastroesophageal reflux disease) 2 Anxiety disorder 05/07/2021 Asthma 05/07/2021 Allergies 05/07/2021 Iron deficiency anemia 05/07/2021 Migraine without aura, with intractable migraine, so stated, with status migrainosus 01/08/2021 Surgical History Surgery Date Site/Laterality Comments CHOLECYSTECTOMY 04/19/1989 - 04/18/1990 LYMPH NODE DISSECTION 04/19/1995 - 04/18/1996 TONSILLECTOMY 04/19/1996 - 04/18/1997 REDUCTION MAMMAPLASTY 04/19/2011 - 04/18/2012 DILATION AND CURETTAGE OF UTERUS 1979,1995,2020 COLONOSCOPY every 5 years ESOPHAGOGASTRODUODENOSCOPY every 5 years CERCLAGE CERVIX 04/19/1979 - 04/18/1980 Medical History Medical History Date Comments PONV (postoperative nausea and vomiting) Hemorrhoids GERD (gastroesophageal reflux disease) Anxiety Hypothyroid Non Hodgkin's lymphoma (HCC) hx of chemo and BMT Post-menopause on HRT (hormone replacement thera py) Family History Medical History Relation Name Comments Anesthesia problems Neg Hx Social History Tobacco Use Types Packs/Day Years Used Date Smoking Tobacco: Never Smokeless Tobacco: Never AUDIT-C Answer Date Recorded Q1: How often do you have a drink containing alc ohol? Never 07/02/2021 Q2: How many drinks containi ng alcohol do you have on a typical day when you are drinking? 1 or 2 07/02/2021 Q3: How often do you have six or more drinks on one occasion? Never 07/02/2021 Comments Unknown Sex and Gender Information Value Date Recorded Sex Assigned at Not on file Legal Sex Female 8:29 AM CDT Gender Identity Not on file Sexual Orientation Not on file Obstetrics History Last Filed Vital Signs Vital Sign Reading Time Taken Comments Blood Pressure 130/92 08/20/2021 10:37 AM CDT Pulse 75 08/20/2021 10:37 AM CDT Temperature 35.9 C (96.6 F) 08/20/2021 10:37 AM CDT Respiratory Rate 14 07/02/2021 1:40 PM CDT Oxygen Saturation 98% 08/20/2021 10:37 AM CDT Inhaled Oxygen Concentration - - Weight 87.3 kg (192 lb 8 oz) 08/20/2021 10:37 AM CDT Height 172.7 cm (5' 8) 08/20/2021 10:37 AM CDT Body Mass Index 29.27 08/20/2021 10:37 AM CDT Plan of Treatment Health Maintenance Due Date Last Done Comments Breast Cancer Screening-Mammogram 1966 Cervical Cancer Screening 1966 Colon Cancer Screening-Colonoscopy 1966 Depression Screening 1966 Hepatitis C Screening 1966 DTaP/Tdap/Td Vaccine (1 - Tdap) 1977 Hepatitis B Screening 1984 Regular Well Visit/Exam 18-64 1984 Pneumococcal vaccine <65 (1 of 2 - PCV) 1985 Covid-19 Vaccine (4 - season) 2024 04/15/2021, 07/31/2020, 07/03/2020 Influenza Vaccine (#1) 2024 02/12/2021, 2019 Zoster Vaccine Completed 03/29/2020, 01/11/2020 Insurance [employer] CLAIMS [employer] CLAIM[employer] Care Teams Professor Of Voice Relationship Specialty Start Date End Date Jeferson Guzman MD [address] [place] [address] PCP - General Internal Medicine 10/16/20
--- OUTSIDE RECORDS SUMMARY | 2025-02-01 09:19 | XMS_ITS | Encounter Summary ---
Author Organization [facility] Address [address] [facility] [place] [address] Care Team Providers Care Radio Operator Ground Name Role Phone Jeferson Guzman MD Primary Care Provider [phone] Thai Murrell DO Primary Care Provider [phone] Encounter Details Date Type Department Care Team (Late st Contact Info) Description 02/27/2022 Lab Requisition [facility] [address] [place] [address] Jose Juan Begum MD [address] [address] Social History Tobacco Use Types Packs/Day Years [...] Procedure Name Priority Date/Time Associated Diagnosis Comments PATH CONSULT ON REFERRED CASE Routine 02/27/2022 10:33 AM TENNIS PLAYER documented in this encounter Results * PATH CONSULT ON REFERRED CASE (02/27/2022 10:33 AM TENNIS PLAYER) Final Diagnosis Lymph nodes, right axillary, excisional biopsy: - Reactive lymph nodes - No malignancy identified - See description 02/27/2022 5:07 PM TENNIS PLAYER [facility] at [address] TENNIS PLAYER Microscopic Description and Comment Sections demonstrate three lymph nodes with variable degrees of fatty replacement. The lymphoid tissue shows normal concha architecture with polarized germinal centers that have mantle zones and intact paracortex. Sinuses are patent and are focally dilated. No Hodgkin/Kd-Brianna cells or large cell infiltrates are identified. There is no granuloma formation or necrosis. To further define the immunoarchitecture, immunohistochemistry is performed on block A2 in the [facility] Department of Pathology. Controls are appropriately reactive. CD20 shows B-cells present in germinal centers and mantle zones. CD3 and CD5 highlight the paracortical T-cells. CD10 is positive in the germinal centers, while BCL-2 is appropriately negative in these areas. Pancytokeratin is negative for metastatic carcinoma. In summary, the right axillary lymph nodes show reactive features with no evidence of lymphoma or other malignancy. Clinical correlation is advised. 02/27/2022 5:07 PM [facility] Clinical History 56 year old woman with a history of non-Hodgkin lymphoma, status-post BMT, who presents for lymph node biopsy. 02/27/2022 5:07 PM [facility] Materials Received Received for initial diagnostic interpretation at [facility] are 5 slides and 5 blocks (A1-A5) labeled [id number] along with a copy of the outside pathology report. The [place] [address]. All original materials are returned to the referring institution, along with a copy of our final report. 02/27/2022 5:07 PM [facility] Disclaimer The performance characteristics of all immunohistochemical and indirect immunofluorescence stains (if any) cited in this report were determined by the Histopathology Laboratory of [facility]. Some of these tests were developed by our own laboratory and have not been cleared or approved by the US Food and Drug Administration. The FDA does not require this test to go through premarket FDA review. These tests are used for clinical purposes. They should not be regarded as investigational or for research. This laboratory is certified under the Clinical Laboratory Improvement Amendments (CLIA) as qualified to perform high complexity clinical laboratory testing. This case has been personally reviewed and interpreted by the attending (teaching) pathologist. The interpretation of this case is performed by [facility] at [facility], [address] [place] [address]. 02/27/2022 5:07 PM [facility] Case Report Surgical Pathology Report Case: [id number] Authorizing Provider: Jose Juan Begum MD Collected: 02/27/2022 10:33 AM Ordering Location: [facility] Received: 02/27/2022 10:34 AM Pathologist: Ashley Cavazos MD Specimen: Axillary Lymph Node, Right 02/27/2022 5:07 PM TENNIS PLAYER [facility] Embedded Images 02/27/2022 5:07 PM [facility]ENNIS PLAYER [facility] Pathology/Cytolo gy AXILLARY LYMPH NODE STRUCTURE / Unknown 02/27/2022 10:33 AM TENNIS PLAYER 02/27/2022 10:34 AM TENNIS PLAYER Jose Juan Begum MD LAB - PATHOLOGY/CYTOLOGY ORDER SHAMAR Final Result Performing Organization Address City/State/[facility] Co de Phone Number [facility] [address] [phone] documented in this encounter Visit Diagnoses Not on filedocumented in this encounter Care Teams Radio Operator Ground Relationship Specialty Start Date End Date Jeferson Guzman MD [address] [place] [address] PCP - General 03/24/21 03/08/22 Thai Murrell DO [address] [place] [address] PCP - General 03/09/22 documented as of this encounter
--- OUTSIDE RECORDS SUMMARY | 2025-02-01 09:19 | XMS_ITS | Encounter Summary ---
Author Organization [facility] Address [address] [place] [address] Care Team Providers Care Bartender Name Role Phone Thai Murrell Primary Care Provider [phone] Encounter Details Date Type Department Care Team (Late st Contact Info) Description 06/22/2022 Lab Requisition [facility] [address] [place] [phone] Savanna Moore PA-C [address] [place] [phone] Social History Tobacco Use Types Packs/Day Years [...] Priority Date/Time Associated Diagnosis Comments DERMATOPATHOLOGY Routine 06/19/2022 12:0 0 AM MILL TENDER SECOND OPERATOR documented in this encounter Results * DERMATOPATHOLOGY (06/19/2022 12:00 AM MILL TENDER SECOND OPERATOR) Case Report Dermatopathology Report Case: [id number] Authorizing Provider: Savanna Moore, Collected: 06/19/2022 12:00 AM KEN Ordering Location: [facility] Lab Received: 06/22/2022 12:24 PM Pathologist: Lilibeth Weiss MD Specimen: Skin, right upper abdomen 03/07/202 3 1:21 PM MILL TENDER SECOND OPERATOR DERMATOPATHOLOGY LABORATORY Final Diagnosis Specimen A. SKIN, right upper abdomen: ACROCHORDON (SOFT FIBROMA, SKIN TAG) (L91.8) 3 1:21 PM [facility] DERMATOPATHOLOGY LABORATORY at [address] MILL TENDER SECOND OPERATOR Clinical History Irritated Nevus 3 1:21 PM [facility] DERMATOPATHOLOGY LABORATORY Gross Description Specimen A: Received is one formalin filled container labeled with the patient's name and designated right upper abdomen. The specimen consists of a shave biopsy measuring 5x4x4 mm. Jar 0. 3 1:21 PM [facility] DERMATOPATHOLOGY LABORATORY Microscopic Description Specimen A. SKIN, right upper abdomen: There is a gently folded epidermis surrounding a connective tissue core in which fat and collagen are intermingled. 3 1:21 PM MILL TENDER SECOND OPERATOR DERMATOPATHOLOGY LABORATORY Disclaimer An external and internal positive and negative controls are appropriate for the histochemical, immunohistochemical and immunofluorescence stain(s) in this case (if any), except where stated explicitly. The performance characteristics of the stain(s) cited in this report were developed and its performance characteristic determined by the Dermatopathology Laboratory at [facility], directed by Dr. Irma Clark. These tests need not be, and therefore are not, approved by the [place] Food and Drug Administration. The tests are used for clinical purposes. Billing Codes Specimen Charges Stain Charges 14015 1 3 1:21 PM MILL TENDER SECOND OPERATOR DERMATOPATHOLOGY LABORATORY Embedded Images 3 1:21 PM [facility] DERMATOPATHOLOGY LABORATORY Pathology/Cytolog y TISSUE SPECIMEN FROM SKIN / Unknown 06/19/2022 06/22/2022 12:24 PM MILL TENDER SECOND OPERATOR us Savanna Moore PA-C LAB - PATHOLOGY/CYTO LOGY ORDERABLES Final Result DERMATOPATHOLOGY LABORATORY [facility] - Department of Dermatology [address] [phone] documented in this encounter Visit Diagnoses Not on filedocumented in this encounter Care Teams Bartender Relationship Specialty Start Date End Date Thai Murrell DO [address] [place] [address] PCP - General 03/09/22 documented as of this encounter
== END 2025-02-01 08:49 | disposition home or self-care (01) ==
PROVIDERS: PCP Nurse Practitioner Family; Visit Provider Nurse Practitioner Family
DX: G43.109 Migraine with aura, not intractable, without status migrainosus (principal)
CPT/HCPCS: 70551

== ENCOUNTER 2025-04-18 11:01 | Outpatient (CLI) | payer OTHER, SELFPAY ==
--- NOTE | 2025-04-18 11:04 | ECG_ITS ---
Test Date: 2025-04-18 11:20:56 Measurements Intervals Severy Rate: 77 P: 21 SD: 177 QRS: -3 QRSD: 96 T: 33 QT: 361 QTc: 410 Interpretive Statements SINUS RHYTHM DELAYED PRECORDIAL R/S TRANSITION BORDERLINE ECG No previous ECG available for comparison Electronically Signed On 04-18-2025 21:25:57 FIRE PROTECTION SPECIALIST by Jonnathan Gould D.O.
--- OUTSIDE RECORDS SUMMARY | 2025-04-18 11:22 | XMS_ITS | Patient Health Record ---
Author Organization [facility] [employer] [facility] Address [address] [place] [address] Care Team Providers Care Sales Product Manager Name Role Phone Michael Lundberg Unavailable [phone] Allergies Allergen (clinical drug ingredient) Drug/Non Drug Allergy documented on EMR Reaction Allergy Type Onset Date Status ciprofloxacin Cipro Unknown Drug Allergy 09/26/2020 Ac tive Substance with penicillin structure and antibacterial mechanism of action (substance) Penicillins Unknown Drug Allergy 09/26/2020 Active Results Component Value Reference Range Notes UDT Reviewed date:09/26/2024 05:44:02 PM Interpretation: Performing Lab: Notes/Report: Amphetamine (AMP) N 0 - 1000 ng/ml Buprenorphine (BUP) N 0 - 10 ng/ml Oxazepam (BZO) P 0 - 300 ng/ml Cocaine (PARKER) N 0 - 300 ng/ml Methamphetamine (mAMP) N 0 - 300 ng/ml Methylenedioxymethamphetamine (MDMA) N 0 - 500 ng/ml Morphine (MOP) N 0 - 25 ng/ml Methadone (MTD) N 0 - 300 ng/ml Oxycodone (OXY) P 0 - 300 ng/ml THC N 0 - 50 ng/ml x N 0 - 1000 ng/ml x N 0 - 1000 ng/ml x N 0 - 300 ng/ml x N 0 - 300 ng/ml x N 0 - 300 ng/ml Reason For Referral No Information Medications Medication SIG (Take, Route, Frequency, Duration) Notes Start Date End Date Status oxyCODONE-Acetaminophe n 5-325 MG Tablet Oral 08/13/2023 Active [place] Thyroid 15 MG Tablet Oral 08/13/2023 Active Spironolactone 50 MG Tablet Oral 08/13/2023 Active ProAir HFA 108 (90 Base) MCG/ACT Aerosol Solution Inhalation 08/13/2023 Active Cetirizine HCl 10 MG Tablet Oral 08/13/2023 Active [place] Thyroid 120 MG Tablet Oral 08/13/2023 Active Ondansetron 4 MG Tablet Disintegrating Oral 08/13/2023 Active Fluticasone Propionate Diskus 50 MCG/ACT Aerosol Powder Breath Activated Inhalation *Reorder from [facility] for eRx and Interaction Alerts* 08/13/2023 Active ALPRAZolam 1 MG Tablet 1 tablet Oral Twice a day; Duration: 30 days As needed 03/28/2025 Active Montelukast Sodium 10 MG Tablet Oral 08/13/2023 Active RABEprazole Sodium 20 MG Tablet Delayed Release Oral 08/13/2023 Active Prometrium 200 MG Capsule Oral 08/13/2023 Active Nurtec 75 MG Tablet Disintegrating Oral *Reorder from [facility] for eRx and Interaction Alerts* 08/13/2023 Active ALPRAZolam 1 MG Tablet 1 tablet Oral Twice a day; Duration: 30 days 09/19/2024 Active Immunizations Vaccine Route Administration Date Status [...] decision-maker Yes Do you have Power of [employer] [facility] [employer] or [facility]? No Tobacco Use: Social Info Question Answer Notes Tobacco Control (Standard) Tobacco use: Nonsmoker Additional Details Category Social Info Options Details Migrated Social History Migrated Social History Alcohol Intake: None 06/26/2022,Tobacco Years: Never smoker 05/11/2019 Problems Problem Type SNOMED Code ICD Code Onset Dates Problem Status W/U Status Risk Notes Problem Generalized anxiety disorder (17658245) Generalized anxiety disorder (F41.1) Active confirmed Problem Posttraumatic stress disorder (56102882) Post-traumatic stress disorder, chronic (F43.12) Active confirmed Problem Primary insomnia (2434303) Primary insomnia (F51.01) Active confirmed Vital Signs Heart Rate 84 /min 03/28/2025 Height-cm 172.72 cm 03/28/2025 Blood pressure diastolic 88 mm Hg 03/28/2025 Weight-kg 74.84 kg 03/28/2025 Height 68.00 in 03/28/2025 Blood pressure systolic 130 mm Hg 03/28/2025 Weight 165 lbs 03/28/2025 BMI 25.09 kg/m2 03/28/2025 Encounters Encounter Location Date Provider Diagnosis [facility] [place] [address] [address] 09/26/2024 Michael Lundberg Negative depression screening Z13.31 ; Encounter for screening for cardiovascular disorders Z13.6 ; Generalized anxiety disorder F41.1 ; Primary insomnia F51.01 and Post-traumatic stress disorder, chronic F43.12 [facility] [place] [address] [phone] 03/28/2025 Michael Lundberg Generalized anxiety disorder F41.1 ; Primary insomnia F51.01 and Post-traumatic stress disorder, chronic F43.12 [facility] [employer] [place] [address] [address] 05/15/2024 Michael Lundberg Assessments Encounter Date Diagnosis (ICD Code) Assessment Notes Treatment Notes Treatment Clinical Notes Section Notes 09/26/2024 Negative depression screening (ICD-10 - Z13.31) 03/28/2025 Generalized anxiety disorder (ICD-10 - F41.1) 03/28/2025 Primary insomnia (ICD-10 - F51.01) stable 09/26/2024 Encounter for screening for cardiovascular disorders (ICD-10 - Z13.6) 09/26/2024 Generalized anxiety disorder (ICD-10 - F41.1) 03/28/2025 Post-traumatic stress disorder, chronic (ICD-10 - F43.12) 09/26/2024 Primary insomnia (ICD-10 - F51.01) stable [...] efforts have been made to correct them. 03/28/2025 Other Generalized anxiety disorder -Continue alprazolam 1mg twice daily as needed - Pt has been on medication mcc, adherent to treatment plan the note is transcribed using speech recognition software. It is a reflection of a visit with the patient. It might have some inaccuracy, including medication names and transcribing errors, though efforts have been made to correct them. Plan Of Treatment No Information Insurance Providers Payer Name Payer Address Payer Phone Subscriber Number Group Number Insured Name Patient Relationship to Insured Coverage Start Date Coverage End Date [employer] [address] [place] [address] [id number] DEVIN COYNE Spouse - patient is the spouse of the insured Medical (General) History Medical History History ICD Code Problems: Chronic post-traumatic stress disorder Generalized anxiety disorder Primary insomnia , Surgical History Surgery Date(Month/Year) Unlisted procedure breast () Vitrectomy 02/28/2025 Tonsilectomy/adenoids Removal of gallbladder (12979) Any surgical history
--- OUTSIDE RECORDS SUMMARY | 2025-04-18 11:22 | XMS_ITS | Clinical Summary ---
Author Organization [facility] Address [address] [place] [address] Care Team Providers Care Head Rose Grower Name Role Phone Jeferson Guzman MD Primary Care Provider [phone] Allergies Active Allergy Reactions Criticality Noted Date [...] ns:hypothyroidi sm Take 120 mg by mouth mail rider before breakfast 1 Active UNABLE TO FINDIndications :supplement Take by mouth every morning Med Name: Methyl Boost (B vitamins) Active UNABLE TO FINDIndications :supplement Take by mouth every morning Med Name: DIM Active multivitamin capsuleIndicati ons:Vitamin Deficiency Prevention Take 1 capsule by mouth every morning Active pcdkr-5-jtq-epa -dpa-fish oil 1,050-1,200 mg capsuleIndicati ons:supplement Take [...] (06/18/2021): Added automatically from request for surgery [id number] History of non-Hodgkin's lymphoma 05/07/2021 Hypothyroidism 05/07/2021 [...] on file Sexual Orientation Not on file Last Filed Vital Signs Vital Sign Reading [...] 08/20/2021 10:37 AM CDT Plan of Treatment Not on file Insurance [employer] Care Teams Head Rose Grower Relationship Specialty Start Date End Date Jeferson Guzman MD [address] [place] [address] PCP - General Internal Medicine 10/16/20
--- OUTSIDE RECORDS SUMMARY | 2025-04-18 11:22 | XMS_ITS | Clinical Summary ---
Author Organization [facility] Address [address] [place] [address] Care Team Providers Care Journalism Professor Name Role Phone Bobby Harrison MD Primary Care Provider [phone] Allergies Active Allergy Reactions Criticality Noted Date Comments Ciprofloxacin Itching,Redness Low 01/08/2021 Penicillins Swelling Medium 01/08/2021 Medications ALPRAZolam 1 MG tablet Take 0.5 tablets (0.5 mg total) by mouth 2 (two) times daily as needed. 09/28/19 21 Active cetirizine 10 MG tablet 10/22/19 21 Active montelukast 10 MG tablet Take 1 tablet (10 mg total) by mouth daily. 01/03/20 21 Active oxyCODONE-acetamin ophen 5-325 MG tablet Take 1 tablet by mouth daily. 12/21/19 21 Active progesterone 200 MG capsule 10/29/19 21 Active RABEprazole EC 20 MG tablet Take 1 tablet (20 mg total) by mouth daily. 11/20/19 21 Active spironolactone 50 MG tablet 10/30/19 21 Active ARMOUR THYROID 120 MG Tab tablet Take 1 tablet (120 mg total) by mouth every morning. 12/31/19 21 Active Niacin (VITAMIN B-3 OR) Active vitamin D3, cholecalciferol, 5000 UNITS capsule Take 1 capsule (5,000 Units total) by mouth daily. Active Multiple Vitamin (MULTIVITAMIN) capsule Take 1 capsule by mouth daily. Active fluticasone propionate (FLONASE) 50 MCG/ACT nasal spray 1 spray by Each Nostril route daily. 06/12/19 23 Active Cyanocobalamin (VITAMIN B 12 OR) Ac tive NON FORMULARY Testosterone pallet Active NON FORMULARY Estradiol pallet Active rimegepant (NURTEC) 75 MG disintegrating tabletIndications: Intractable migraine with status migrainosus, unspecified migraine type Take 1 tablet (75 mg total) by mouth daily as needed for Migraine. Max of 1 tablet (75 mg) in 24 hours. 16 tablet 3 03/09/20 23 Active MOUNJARO 5 MG/0.5ML injection INJECT 5 MG UNDER THE SKIN ONE DAY A WEEK 05/11/19 24 Active rimegepant (NURTEC) 75 MG disintegrating tabletIndications: Intractable chronic migraine with aura with status migrainosus Take 1 tablet (75 mg total) by mouth daily as needed for Migraine. Max of 1 tablet (75 mg) in 24 hours. 50 tablet 1 10/06/19 25 Active Active Problems Problem Noted Date Diagnosed Date Migraine without aura, with intractable migraine, so stated, with status migrainosus 01/08/2021 Encounters Date Type Department Care Team Description 02/02/2025 3:40 PM CDT - 02/02/2025 4:00 PM CDT Surgery [facility] [place] [address] [id number] Fariba Irene MD INJECTION TRIGGER POINT botox 02/02/2025 2:49 PM CDT - 02/02/2025 4:00 PM CDT Hospital Encounter [facility] [place] [address] [id number] Fariba Irene MD Discharge Disposition: Home or Self Care (Routine Discharge) 02/02/2025 Travel from Last 3 Months Immunizations Immunization Administration Dates Next Due MODERNA COVID-19 (12+) MRNA, LNP-S, PF, 100 MCG/ 0.5 ML DOSE 07/31/2020,07/03/2020 Family History Relation Status Comments Father Mother Social History Tobacco Use Types Packs/Day Years Used Date Smoking Tobacco: Never Smokeless Tobacco: Never Alcohol Use Standard Drinks/Week Comments Never 0 (1 standard drink = 0.6 oz pur e alcohol) Education Answer Date Recorded What is the highest level of school you have completed or the highest degree you have received? 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 Not on file Not on file Not on file Last Filed Vital Signs Vital Sign Reading Time Taken Comments Blood Pressure 124/77 02/02/2025 2:57 PM CDT Pulse 79 02/02/2025 2:57 PM CDT Temperature 37.2 C (98.9 F) 02/02/2025 2:57 PM CDT Respiratory Rate 18 02/02/2025 2:57 PM CDT Oxygen Saturation 100% 02/02/2025 2:57 PM CDT Inhaled Oxygen Concentration - - Weight 73.5 kg (162 lb) 02/02/2025 2:57 PM CDT Height 172.7 cm (5' 8) 02/02/2025 2:57 PM CDT Body Mass Index 24.63 02/02/2025 2:57 PM CDT Plan of Treatment Upcoming Encounters Date Type Department Care Team (Latest Contact Info) Description 05/04/2025 8:40 AM SIGN PAINTER APPRENTICE Office Visit [facility] - [facility] [address], [address] [place] [id number] Megha Rodriguez MD [address] [place], [place] [id number] 05/11/2025 2:00 PM SIGN PAINTER APPRENTICE Hospital Encounter [facility] [place] [address] [id number] Fariba Irene MD [facility] [address] [place] [id number] 05/11/2025 2:00 PM SIGN PAINTER APPRENTICE - 05/11/2025 2:20 PM SIGN PAINTER APPRENTICE Surgery [facility] [place] [address] [id number] Fariba Irene MD [facility] [address] [place] [id number] INJECTION TRIGGER POINT botox Scheduled Procedures Name Priority Associated Diagnoses Date/Ti me INJECTION TRIGGER POINT Migraine without aura, with intractable migraine, so stated, with status migrainosus 05/11/2025 2:00 PM SIGN PAINTER APPRENTICE Health Maintenance Due Date Last Done Comments Cervical Cancer Screening Pap Smear (Age 30 to 64) Every 3 Years 1966 Colorectal Cancer Screening Colonoscopy (10 Years) 1966 Annual Physical 1969 Hepatitis C 1984 DTaP, Tdap and Td Vaccines (1 - Tdap) 1985 Hepatitis B Vaccines (1 of 3 - 19+ 3-dose series) 1985 Cervical Cancer Screening Pap with HPV Testing (Age 30 to 64) Every 5 Years 1996 Cervical Cancer Screening with HPV 1996 Mammogram Screening 2006 Pneumococcal Vaccine: 50+ Years (1 of 1 - PCV) 2016 COVID-19 Vaccine ( - season) 2024 02/16/2023, 04/08/2022, 04/15/2021, Additional history exists Influenza Adult (#1) 2025 02/16/2023, 02/19/2022, 02/12/2021, Additional history exists Zoster Vaccines Completed 03/29/2020, 03/19, 01/11/2020, Additional history exists Hepatitis A Vaccines Aged Out No long er eligible based on patient's age to complete this topic Meningococcal B Vaccine Aged Out No l onger eligible based on patient's age to complete this topic Meningococcal Vaccine Aged Out No naseem nadeen eligible based on patient's age to complete this topic RSV Immunizations Under 20 Months Aged Out No longer eligible based on patient's age to complete this topic Goals Goal Patient Goal Type Associated Problems Recent Progress Patient-Stated? Author Autogenera thao Goal Care Plan Autogenerated Problem No Ana Lilia Gaytantianna [place] Procedures Procedure Name Priority Date/Time Associated Diagnosis Comments CHEMODENERVATION MUSCLE INNERVTD, BILAT 02/02/2025 3:44 PM CDT Migraine without aura, with intractable migraine, so stated, with status migrainosus from Last 3 Months Additional Health Concerns Active Problems Noted Date Diagnosed Date Autogenerated Problem 02/06/2025 Insurance Care Teams Journalism Professor Relationship Specialty Start Date End Date Bobby Harrison MD [address] [place] [address] PCP - General FAMILY PRACTICE 02/13/25
== END 2025-04-18 11:02 | disposition home or self-care (01) ==
PROVIDERS: PCP Nurse Practitioner Family; Visit Provider Nurse Practitioner Family
DX: Z41.9 Encounter for procedure for purposes other than remedying health state, unspecified (principal); R94.31 Abnormal electrocardiogram [ECG] [EKG]
CPT/HCPCS: 93005